=== PATIENT | male | born 1935 | race Caucasian/White ===

== ENCOUNTER 2018-02-21 07:29 | Emergency (ER) | payer MEDICARE, OTHER ==
[2018-02-21] MEDS ORDERED: 50% Dextrose in Water 50 ML Syringe ONE (07:40)
--- NOTE | 2018-02-21 07:54 | EDM.PDOC ---
ED HPI GENERAL MEDICAL PROBLEM - General Stated Complaint: WEAK Time Seen by Provider: 02/21/18 07:40 Source of Information: Reports: Patient, Family (spouse) History Limitations: Reports: Altered Mental Status - History of Present Illness INITIAL COMMENTS - FREE TEXT/NARRATIVE: 82-year-old male who is an insulin-dependent diabetic presents the ED not feeling well. His reports that she had breakfast more or less made and was on the table when they left home. He takes his insulin and all his other medications about 0 7:00 in the morning. Usually uses Lantus in the morning. Within a half hour of taking his insulin this morning however he developed paleness diaphoresis blurred vision and generalized weakness. His was very concerned that he was having a stroke and brought him to the ED. He was identified to have a low blood sugar at 54. Blood sugar at home this morning was reported to be 140 Were not sure where there is a discrepancy in the different readings. It is possible that his Lantus was injected intravenously and acted very quickly to precipitate a hypoglycemic reaction. She responded immediately to D5 IV. Onset: Today Onset Date: 02/21/18 Onset Time: 07:20 Duration: Minutes: Location: Reports: Generalized (Generalized weakness diaphoresis blurred vision insulin reaction.) Severity: Moderate Improves with: Reports: Other (Improved immediately with IV glucose D50 1 amp IV.) Worsens with: Reports: None Context: Reports: Other. Denies: Activity, Exercise, Lifting, Sick Contact, Trauma Associated Symptoms: Reports: Confusion (Acute insulin reaction occurring after insulin injection about 0700 hrs. this morning.), Malaise, Weakness, Other ( Blurred vision.). Denies: Chest Pain, Cough, cough w sputum, Diaphoresis, Fever /Chills, Headaches, Loss of Appetite, Nausea/Vomiting, Rash, Seizure, Shortness of Breath, Syncope Treatments RN PALLIATIVE: Reports: Other (see below) - Related Data Allergies Allergy/AdvReac Type Severity Reaction Status Date / Time No Known Allergies Allergy Verified 02/21/18 07:57 Home Meds: Home Meds Insulin Glarg,Human.Rec.Analog [Lantus Solostar] 18 - 20 unit SQ DAILY 02/21/18 [History] Lisinopril 10 mg PO DAILY 02/21/18 [History] glipiZIDE [Glucotrol XL] 5 mg PO DAILY 02/21/18 [History] Past Medical History Musculoskeletal History: Reports: Osteoarthritis (Knee replacements) Endocrine/Metabolic History: Reports: Diabetes, Type II (Controlled with insulin and diet.) Social & Family History - Living Situation & Occupation Living situation: Reports: Occupation: Retired ED ROS GENERAL - Review of Systems Review Of Systems: See Below Constitutional: Reports: Malaise, Fatigue, Diaphoresis (This morning with insulin reaction). Denies: Fever, Chills, Decreased Appetite (This morning.) HEENT: Reports: Hearing Loss (Chronic hearing loss.), Vision Change (Word vision this morning found a very difficult to focus.) Respiratory: Reports: No Symptoms Cardiovascular: Reports: Blood Pressure Problem. Denies: Chest Pain, Claudication, Dyspnea on Exertion, Lightheadedness, Orthopnea Endocrine: Reports: Fatigue, Low Glucose (This morning developed insulin reaction. Sugar here was 54.) GI/Abdominal: Reports: No Symptoms : Reports: Frequency, Other (Nocturia usually 3) Musculoskeletal: Reports: Joint Pain (Knees hips back and neck.) Skin: Reports: Diaphoresis Neurological: Reports: Confusion (This morning now better.), Dizziness (No better after ) ED EXAM, NEURO - Physical Exam Exam: See Below (No better after D50 IV.) Exam Limited By: Altered Mental Status (Confused and somewhat disoriented.) General Appearance: Anxious, Other (Diaphoretic and cool and clammy.) Eye Exam: Bilateral Eye: PERRL Throat/Mouth: Normal Inspection, Normal Lips, Normal Oropharynx Head Exam: Atraumatic, Normocephalic Neck: Normal Inspection, Supple, Non-Tender, Full Range of Motion. No: Lymphadenopathy (L), Lymphadenopathy (R) Respiratory/Chest: No Respiratory Distress, Lungs Clear, Normal Breath Sounds Cardiovascular: Normal Peripheral Pulses, Regular Rate, Rhythm, No Edema, No Murmur GI/Abdominal: Normal Bowel Sounds, Soft, Non-Tender, No Organomegaly Neurological: Other (Patient became much more alert and oriented 3 and able to speak normally after receiving an amp of D50 IV. Before that his speech was mildly dysarthric and he had trouble expressing himself or we bit.) Extremities: Normal Inspection, Normal Range of Motion Psychiatric: Normal Affect, Normal Mood (After receiving an ayla of D50) Skin Exam: Diaphoretic (Presented quite diaphoretic cool and clammy now improved.) EKG INTERPRETATION EKG Date: 02/21/18 Time: 07:38 Rhythm: Other (Sinus rhythm versus ectopic atrial rhythm.) Rate (Beats/Min): 67 [place]: LAD-Left [place] Deviation (Left axis deviation -40) P-Wave: Variable QRS: Other (He has a nonspecific intraventricular conduction delay. There is early R-wave transition suggesting septal hypertrophy pattern. There is left ventricular hypertrophy pattern.) ST-T: Other (Diffuse early repolarization pattern with no true ST segment elevation.) QT: Prolonged (Mildly prolonged) EKG Interpretation Comments: Abnormal ECG. Course - Vital Signs Last Recorded V/S: Last Vital Signs Temp 36.6 C 02/21/18 07:40 Pulse 66 02/21/18 07:40 Resp 20 02/21/18 07:40 BP 133/69 02/21/18 07:40 Pulse Ox 96 02/21/18 07:40 - Orders/Labs/Meds Orders: Active Orders 24 hr Category Date Time Status Blood Glucose Check, Bedside [RC] ONETIME Care 02/21/18 08:30 Active Blood Glucose Check, Bedside [RC] ONETIME Care 02/21/18 09:15 Active Labs: Laboratory Tests 02/21/18 02/21/18 02/21/18 Range/Units 07:40 08:37 09:26 POC Glucose 54 L 130 H 191 H (83-110) mg/dL Meds: Medications Discontinued Medications Generic Name Dose Route Start Last Admin Trade Name Colin PRN Reason Stop Dose Admin Dextrose/Water Confirm 02/21/18 07:40 02/21/18 07:41 Dextrose 50% In Water Administered 02/21/18 07:41 50 ml Dose Administration 50 ml .ROUTE .STK-MED ONE Dextrose/Water 50 ml 02/21/18 08:21 02/21/18 08:33 Dextrose 50% In Water IVPUSH 02/21/18 08:22 Not Given ASDIRECTED STA - Radiology Interpretation Free Text/Narrative:: 82-year-old male who is a type II diabetic controlled with insulin and diet presents to the ED with an acute episode of confusion disorientation dysarthria diaphoresis weakness. Third vision. He took his Lantus insulin at about 0700 hrs. this morning. His breakfast was more or less ready but he had not yet had time to eat. His appreciated that he looked abnormal confused and disoriented and brought him immediately to the hospital. Here his blood sugar was 54. At home it was apparently 140 when he checked this morning. Not clear if there is a discrepancy deep between the glucometer and our reading or whether he perhaps injected the Lantus insulin intravenously with direct effect this morning. Improved immediately after receiving an amp of D50 IV. Given breakfast. Recheck blood sugar in one hour. - Re-Assessments/Exams Free Text/Narrative Re-Assessment/Exam: 02/21/18 08:39 repeat blood sugar is 130. Therefore he will remain in the ED for an least another 45 minutes. He has 8 some breakfast which may improve his blood sugars well. However I would've anticipated his blood sugar to be well up in the 200s after receiving an amp of D50. We'll have his blood sugar repeated in 40 minutes 02/21/18 09:50 last blood sugar is 191. Therefore it is trending upwards and he feels improved. He will therefore be discharged to home. Departure - Departure Time of Disposition: 09:51 Disposition: Home, Self-Care 01 Condition: Fair Clinical Impression: Hypoglycemia Insulin adverse reaction Qualifiers: Encounter type: initial encounter Qualified Code(s): T38.3X5A - Adverse effect of insulin and oral hypoglycemic [antidiabetic] drugs, initial encounter - Discharge Information *PRESCRIPTION DRUG MONITORING PROGRAM REVIEWED*: Not Applicable *COPY OF PRESCRIPTION DRUG MONITORING REPORT IN PATIENT ZOEY: Not Applicable Referrals: Annalee Kirk NP [Primary Care Provider] - Additional Instructions: Evaluation the emergency room this morning in regards to development of low blood sugar after giving herself insulin injection at about 0700 hrs. You had not yet eaten prepared breakfast. However the insulin given was Lantus which is long-acting and the only way that it should've dropped her blood sugars acutely as if it went directly intravenously which would make it start working immediately. You're treated with an amp of D50 percent glucose intravenously and her mentation and cognitive function returned back to normal. Blood sugar after eating remained lower than I would anticipate at 1:30 after receiving an amp of D50. Therefore you were monitored longer in the ED to make sure that you did not develop any further severe low blood sugars. - My Orders Last 24 Hours: My Active Orders 02/21/18 08:30 Blood Glucose Check, Bedside [RC] ONETIME 02/21/18 09:15 Blood Glucose Check, Bedside [RC] ONETIME - Assessment/Plan Last 24 Hours: My Active Orders 02/21/18 08:30 Blood Glucose Check, Bedside [RC] ONETIME 02/21/18 09:15 Blood Glucose Check, Bedside [RC] ONETIME
[2018-02-21] MEDS ORDERED: 50% Dextrose in Water 50 ML Syringe IVPUSH STA (08:21)
== END 2018-02-21 10:00 | disposition home or self-care (01) ==
LOC: JD.ED 07:29
DX: E11.649 Type 2 diabetes mellitus with hypoglycemia without coma (principal); T38.3X5A Adverse effect of insulin and oral hypoglycemic [antidiabetic] drugs, initial encounter; Z79.4 Long term (current) use of insulin; Z79.899 Other long term (current) drug therapy
CPT/HCPCS: 82962; 93005; 96374; 99285; J7060; 99284

== ENCOUNTER 2018-12-11 20:28 | Emergency (ER) | payer MEDICARE, OTHER ==
--- NOTE | 2018-12-11 20:57 | EDM.PDOC ---
ED HPI GENERAL MEDICAL PROBLEM - General Chief Complaint: Gastrointestinal Problem Stated Complaint: CONSTIPATION Time Seen by Provider: 12/11/18 20:40 Source of Information: Reports: Patient, RN Notes Reviewed History Limitations: Reports: No Limitations - History of Present Illness INITIAL COMMENTS - FREE TEXT/NARRATIVE: Patient is an 83-year-old male who presents to the ED for evaluation of constipation. The patient and his note that he had a left knee repair done in [place] on . The states he has not had a regular bowel movement since around Thursday before the surgery. She states that he's been on the tramadol as his surgeon prescribed, the patient states he is passing very little gas however he is still able to pass gas. He denies any abdominal pain or any nausea or vomiting at this time. He has been trying to take stool softeners, MiraLAX last at 2 PM this afternoon. His has also given him some warm prune juice to try to get his bowels to move but to no avail. - Related Data Allergies Allergy/AdvReac Type Severity Reaction Status Date / Time No Known Allergies Allergy Verified 12/11/18 20:41 Home Meds: Home Meds Insulin Glarg,Human.Rec.Analog [Lantus Solostar] 18 - 20 unit SQ DAILY 02/21/18 [History] Lisinopril 10 mg PO DAILY 02/21/18 [History] glipiZIDE [Glucotrol XL] 5 mg PO DAILY 02/21/18 [History] Past Medical History HEENT History: Reports: Cataract, Impaired Vision Other HEENT History: wears reading glasses Respiratory History: Reports: Pneumonia, Recurrent Other Genitourinary History: states has prostate issues. Musculoskeletal History: Reports: Osteoarthritis Endocrine/Metabolic History: Reports: Diabetes, Type II Hematologic History: Reports: Blood Transfusion(s) - Infectious Disease History Infectious Disease History: Reports: Chicken Pox, Measles, Mumps, Rheumatic Fever - Past Surgical History HEENT Surgical History: Reports: Cataract Surgery Cardiovascular Surgical History: Reports: Coronary Artery Bypass, Other (See Below) Other Cardiovascular Surgeries/Procedures: valve replaced. Musculoskeletal Surgical History: Reports: Other (See Below) (partial knee replacement surgery done 12/09/18 in [place]) Other Musculoskeletal Surgeries/Procedures:: knee surgery Social & Family History - Tobacco Use Smoking Status *Q: Never Smoker - Caffeine Use Caffeine Use: Reports: Coffee - Living Situation & Occupation Living situation: Reports: Occupation: Retired ED ROS GENERAL - Review of Systems Review Of Systems: See Below Constitutional: Denies: Fever, Chills HEENT: Reports: No Symptoms Respiratory: Reports: No Symptoms Cardiovascular: Reports: No Symptoms Endocrine: Reports: No Symptoms GI/Abdominal: Reports: Constipation. Denies: Diarrhea, Nausea, Vomiting Musculoskeletal: Reports: No Symptoms Skin: Reports: No Symptoms Neurological: Reports: No Symptoms Psychiatric: Reports: No Symptoms Hematologic/Lymphatic: Reports: No Symptoms Immunologic: Reports: No Symptoms ED EXAM, GI/ABD - Physical Exam Exam: See Below Exam Limited By: No Limitations General Appearance: Alert, WD/WN, No Apparent Distress Respiratory/Chest: No Respiratory Distress, Lungs Clear, Normal Breath Sounds, No Accessory Muscle Use, Chest Non-Tender Cardiovascular: Normal Peripheral Pulses, Regular Rate, Rhythm, No Murmur GI/Abdominal Exam: Normal Bowel Sounds, Soft, Non-Tender, No Mass, Distended ( slight distention, patient states that he feels bloated.) Neurological: Alert, Oriented, Normal Cognition, No Motor/Sensory Deficits Psychiatric: Normal Affect, Normal Mood Skin Exam: Warm, Dry, Intact, Normal Color, No Rash Course - Vital Signs Last Recorded V/S: Last Vital Signs Temp 99.0 F 12/11/18 20:41 Pulse 80 12/11/18 20:41 Resp BP 137/66 12/11/18 20:41 Pulse Ox 90 L 12/11/18 20:41 - Orders/Labs/Meds Orders: Active Orders 24 hr Category Date Time Status Enema [RC] ASDIRECTED Care 12/11/18 22:31 Ordered Abdomen 2V AP Flat Upright [CR] Stat Exams 12/11/18 20:52 Ordered Meds: Medications Discontinued Medications Generic Name Dose Route Start Last Admin Trade Name Javidq PRN Reason Stop Dose Admin Acetaminophen 650 mg 12/11/18 22:53 Tylenol PO 12/11/18 22:54 NOW ONE Magnesium Citrate 296 ml 12/11/18 21:12 12/11/18 21:21 Citrate Of Magnesia PO 12/11/18 21:13 296 ml ONETIME ONE Administration - Re-Assessments/Exams Free Text/Narrative Re-Assessment/Exam: 12/11/18 20:55 Patient presents to the ED for the evaluation of constipation. I have ordered a flat and upright abdominal x-ray to make sure that he is not obstructed, I do plan on ordering magnesium citrate after the x-rays are done and so that the gentleman can have a good bowel movement. I anticipate x-rays to show increased bowel in his colon, with no obstruction at this time, due to lack of other toxic like symptoms such as nausea and vomiting. 12/11/18 21:14 Patient's x-ray is done, and demonstrates quite a bit of stool in the right side of his colon, there does not appear to be any into the left side of his colon. This was reviewed by Dr. Farooq and myself. I have ordered magnesium citrate to be given with extra oral fluids as well. I am hopeful that this should provide the gentleman results, and he should be discharged safely after he has a good bowel movement. 12/11/18 22:32 The RN informs me that the patient has not had a bowel movement yet, I did order a mineral oil enema to be done to see if this doesn't help. Departure - Departure Time of Disposition: 22:58 Disposition: Home, Self-Care 01 Condition: Fair Clinical Impression: Constipation Qualifiers: Constipation type: drug induced constipation Qualified Code(s): K59.03 - Drug induced constipation - Discharge Information *PRESCRIPTION DRUG MONITORING PROGRAM REVIEWED*: No *COPY OF PRESCRIPTION DRUG MONITORING REPORT IN PATIENT ZOEY: No Instructions: Constipation, Adult, [id number] Referrals: Mamta Gaxiola PA [Primary Care Provider] - Forms: ED Department Discharge Additional Instructions: You have been evaluated in the ED today for your constipation. Your x-ray did show it a large amount of stool within your right side of her colon, you have been given magnesium citrate in the ED to provide you a bowel movement. Please take the other half bottle of magnesium citrate tomorrow morning if you do not have much of a bowel movement over the night. The pain medications that your orthopedic surgeon gave you are the likely culprit of your constipation. Narcotic pain medications can be quite constipating. Recommend that you increase your oral fluid intake and take MiraLAX daily to keep the stool soft. If you are having too much constipation from taking your narcotic pain medications (Tramadol), you can try some [id number] medications such as 500mg Tylenol or 600mg ibuprofen every 6 hours for pain relief first and if the pain is not relieved by the Tylenol or ibuprofen by itself then take your narcotic pain medication. Please do not take more than 4000 mg of Tylenol or 3200mg Ibuprofen in a 24-hour time span. Recommend a high-fiber diet while you are on the narcotic pain medications. Please return to the ED if your symptoms should change or worsen. - My Orders Last 24 Hours: My Active Orders 12/11/18 20:52 Abdomen 2V AP Flat Upright [CR] Stat 12/11/18 22:31 Enema [RC] ASDIRECTED - Assessment/Plan Last 24 Hours: My Active Orders 12/11/18 20:52 Abdomen 2V AP Flat Upright [CR] Stat 12/11/18 22:31 Enema [RC] ASDIRECTED
[2018-12-11] MEDS ORDERED: Magnesium Citrate Solution 296 ML Bottle PO ONE (21:12)
[2018-12-11] MEDS ORDERED: Acetaminophen 325 MG Tab PO ONE (22:53)
--- NOTE | 2018-12-12 17:55 | CR ---
Abdomen: Supine and upright views of the abdomen were obtained. Comparison: No prior abdominal x-ray, previous CT abdomen and pelvis study of 01/01/09 is available. Bowel gas pattern appears normal. Bony structures are osteopenic. Slight degenerative change is scattered within the spine. No free air is seen. No abnormal calcifications are seen. No discrete soft tissue abnormality is seen. Previous sternotomy is noted. Impression: 1. Incidental findings. Nothing acute is identified. Diagnostic code #2
== END 2018-12-11 23:28 | disposition home or self-care (01) ==
LOC: JD.ED 20:28
DX: K59.03 Drug induced constipation (principal); T50.905A Adverse effect of unspecified drugs, medicaments and biological substances, initial encounter; E11.9 Type 2 diabetes mellitus without complications; Z79.899 Other long term (current) drug therapy; Z79.4 Long term (current) use of insulin; Z95.1 Presence of aortocoronary bypass graft; Z98.890 Other specified postprocedural states
CPT/HCPCS: 74019; 99283; A9270; 99282

== ENCOUNTER 2019-08-15 10:06 | Day surgery (SDC) | payer MEDICARE, OTHER ==
[~2019-08-15 10:06] MED LIST: Lactated Ringers 1,000 ML IV SCH; Lidocaine 1%/Sod Bicarbonate in NS 8.4% 1 ML Syringe IDERM PRN; Sodium Chloride 0.9% 10 ML Syringe FLUSH PRN
[2019-08-15] MEDS ORDERED: Propofol 200 MG/20 ML SDV ONE ×2 (12:02→13:05)
[2019-08-15] MEDS ORDERED: Lidocaine 1% 4 ML ONE (12:03)
--- NOTE | 2019-08-15 12:29 | PCM.PREANE ---
Preanesthetic Assessment - Procedure Proposed Procedure: Colonoscopy - Anesthesia/Transfusion/Family Hx Anesthesia History: Prior Anesthesia Without Reaction Family History of Anesthesia Reaction: No - Review of Systems General: No Symptoms Pulmonary: No Symptoms Cardiovascular: No Symptoms, Other (Aortic Valve Replacement 2005, Severe Mitral Stenosis, EF 50-55%, > 4 Met Capacity. Walks 2 rounds of the mall. ) Gastrointestinal: No Symptoms Neurological: No Symptoms Other: Reports: Diabetes (Blood Glucose 92 mg/dl.) - Physical Assessment NPO Status Date: 08/14/19 NPO Status Time: 22:00 Vital Signs: Last Vital Signs Temp 36.9 C 08/15/19 10:25 Pulse 64 08/15/19 10:25 Resp 16 08/15/19 10:25 BP 153/82 H 08/15/19 10:25 Pulse Ox 97 08/15/19 10:25 Height: 1.78 m Weight: 97.069 kg ASA Class: 3 Mental Status: Alert & Oriented x3 Airway Class: Mallampati = 2 Dentition: Reports: Caries (Chipped tooth) Thyro-Mental Finger Breadths: 3 Mouth Opening Finger Breadths: 3 ROM/Head Extension: Full Lungs: Clear to Auscultation, Normal Respiratory Effort Cardiovascular: Regular Rate, Regular Rhythm (Occasional PVCs noted on bedside monitor. ), Murmurs - Lab Values: Laboratory Last Values POC Glucose 92 mg/dL (83-110) 08/15/19 11:04 - Allergies Allergies/Adverse Reactions: Allergies Allergy/AdvReac Type Severity Reaction Status Date / Time No Known Allergies Allergy Verified 08/12/19 11:14 - Acknowledgements Anesthesia Type Planned: MAC Pt an Appropriate Candidate for the Planned Anesthesia: Yes Alternatives and Risks of Anesthesia Discussed w Pt/Guardian: Yes Pt/Guardian Understands and Agrees with Anesthesia Plan: Yes PreAnesthesia Questionnaire HEENT History: Reports: Cataract, Hard of Hearing, Impaired Vision Other HEENT History: wears reading glasses, epistaxis, otogenic pain Cardiovascular History: Reports: Heart Murmur, Hypertension, Other (See Below) Other Cardiovascular History: carotid sinus syndrome, heart valve replacement, mitral stenosis, aortic insufficiency Respiratory History: Reports: Pneumonia, Recurrent Gastrointestinal History: Reports: Chronic Constipation Genitourinary History: Reports: BPH, Renal Disease, UTI, Recurrent Other Genitourinary History: states has prostate issues. VP OUTCOMES History: Reports: None Musculoskeletal History: Reports: Osteoarthritis, RA, SLE Other Musculoskeletal History: restless leg syndrome, polymyalgia rheumatica, bunion, joint pain Neurological History: Reports: Other (See Below) Other Neuro History: cerviclagia Psychiatric History: Reports: None Endocrine/Metabolic History: Reports: None, Diabetes, Type II Hematologic History: Reports: Anemia, Blood Transfusion(s) Immunologic History: Reports: None Oncologic (Cancer) History: Reports: None Dermatologic History: Reports: Seborrheic Dermatitis - Infectious Disease History Infectious Disease History: Reports: Chicken Pox, Measles, Mumps, Rheumatic Fever - Past Surgical History Head Surgeries/Procedures: Reports: None HEENT Surgical History: Reports: Cataract Surgery Cardiovascular Surgical History: Reports: Coronary Artery Bypass, Valve Replacement, Other (See Below) Other Cardiovascular Surgeries/Procedures: valve replaced. GI Surgical History: Reports: Colonoscopy, Hernia, Inguinal Male Surgical History: Reports: Prostate Biopsy Endocrine Surgical History: Reports: None Neurological Surgical History: Reports: None Musculoskeletal Surgical History: Reports: Other (See Below) Other Musculoskeletal Surgeries/Procedures:: right shoulder surgery Oncologic Surgical History: Reports: None Dermatological Surgical History: Reports: None - SUBSTANCE USE Smoking Status *Q: Never Smoker - HOME MEDS Home Medications: Home Meds Lisinopril 10 mg PO DAILY 02/21/18 [History] glipiZIDE [Glucotrol XL] 5 mg PO DAILY 02/21/18 [History] Aspirin 81 mg PO DAILY 08/12/19 [History] Docusate Sodium [Colace] 100 mg PO BID 08/12/19 [History] Insulin Degludec [Tresiba] 11 units SQ QAM 08/12/19 [History] Magnesium Oxide 250 mg PO DAILY 08/12/19 [History] Meloxicam [Mobic] 7.5 mg PO DAILY 08/12/19 [History] Multivitamin [Daily Multiple Vitamin] 1 tab PO DAILY 08/12/19 [History] Polyethylene Glycol 3350 [MiraLAX] 17 g PO DAILY 08/12/19 [History] Tamsulosin HCl [Flomax] 0.4 mg PO DAILY 08/12/19 [History] rOPINIRole [Requip] 1 mg PO BEDTIME 08/12/19 [History] - CURRENT (IN HOUSE) MEDS Current Meds: Current Medications Lactated Ringer's (Ringers, Lactated) 1,000 mls @ 125 mls/hr IV ASDIRECTED ALLIE Stop: 08/15/19 23:00 Last Admin: 08/15/19 10:45 Dose: 125 mls/hr Lidocaine/Sodium Bicarbonate (Buffered Lidocaine 1% In Ns 8.4%) 0.25 ml IDERM ONETIME PRN PRN Reason: Prior to IV Start Stop: 08/15/19 18:00 Last Admin: 08/15/19 10:44 Dose: 0.25 ml Sodium Chloride (Saline Flush) 10 ml FLUSH ASDIRECTED PRN PRN Reason: Keep Vein Open Stop: 08/15/19 18:00 Discontinued Medications Lidocaine HCl (Xylocaine-Mpf 1%) Confirm Administered Dose 4 mls @ as directed .ROUTE .STK-MED ONE Stop: 08/15/19 12:04 Propofol (Diprivan 20 Ml) Confirm Administered Dose 200 mg .ROUTE .STK-MED ONE Stop: 08/15/19 12:03
--- NOTE | 2019-08-15 13:37 | PCM48HPAN ---
Post Anesthesia Note - EVALUATION WITHIN 48HRS OF ANESTHETIC Vital Signs in Normal Range: Yes Patient Participated in Evaluation: Yes Respiratory Function Stable: Yes Airway Patent: Yes Cardiovascular Function Stable: Yes Hydration Status Stable: Yes Pain Control Satisfactory: Yes Nausea and Vomiting Control Satisfactory: Yes Mental Status Recovered: Yes Vital Signs: Last Vital Signs Temp 36.9 C 08/15/19 10:25 Pulse 64 08/15/19 10:25 Resp 16 08/15/19 10:25 BP 153/82 H 08/15/19 10:25 Pulse Ox 97 08/15/19 10:25
--- NOTE | 2019-08-15 15:48 | PROC ---
DATE OF OPERATION: 08/15/2019 SURGEON: Roseanne Malagon MD PREOPERATIVE DIAGNOSIS: Change in bowel habits. POSTOPERATIVE DIAGNOSES: 1. Melanosis coli. 2. Diverticulosis. 3. Grade 2 hemorrhoids. 4. 1 small ascending colon polyp. OPERATION PERFORMED: Colonoscopy, polypectomy. ANESTHESIA: Monitored anesthesia care. COMPLICATIONS: None. INDICATION AND CONSENT: The patient is an 83-year-old male who started having severe constipation about 2 to 3 months ago after having a hip surgery. This constipation persisted despite having healed from the surgery. The patient presented to my clinic for worrisome symptoms and discovered the patient had prior history of rectal cancer that was removed transrectally. Therefore, due to personal history of cancer as well as change in bowel habits, we recommended repeat colonoscopy. Risks, benefits, and alternatives were discussed with the patient in detail. All questions were answered. Informed consent was obtained. DESCRIPTION OF PROCEDURE: The patient was taken to the procedure room, placed in left lateral decubitus position. Following induction of monitored anesthesia care, we began the exam by doing a perianal exam. There were some skin tags that were unremarkable. Digital rectal exam did not reveal any masses or any other abnormalities. The scope was placed and taken all the way to the cecum. Appendiceal orifice and ileocecal valve were photographed. Prep was adequate. Then, scope was withdrawn slowly, examining the entirety of the colonic wall. There was a 2 mm polyp in the proximal ascending colon, that was removed with cold forceps. The colonoscopy was then withdrawn slowly and the entirety of the colonic mucosa appeared to be having melanosis coli but no other polyps. On retroflexion views in the rectum, there were some grade 2 hemorrhoids. The patient had large scattered diverticulosis in the descending colon, sigmoid as well as the proximal rectum. There was no stigmata of bleeding. No infection. Then, the air was suctioned out, and the scope was withdrawn without any complications. The patient was taken to the PACU for recovery. We will call the patient with pathology results. Other than that, the patient can continue to use MiraLAX as needed for constipation as well as increased physical activity for constipation. No further recommendation for repeat scope. Pending pathology results from the biopsy. MMODAL /[id number] LATANYA
== END 2019-08-15 14:31 | disposition home or self-care (01) ==
LOC: JD.SDS 10:06
PROVIDERS: ATTEND Surgery
DX: D12.2 Benign neoplasm of ascending colon (principal); K57.30 Diverticulosis of large intestine without perforation or abscess without bleeding; K64.1 Second degree hemorrhoids; K63.89 Other specified diseases of intestine; E11.9 Type 2 diabetes mellitus without complications; I10 Essential (primary) hypertension; I25.10 Atherosclerotic heart disease of native coronary artery without angina pectoris; M06.9 Rheumatoid arthritis, unspecified; M19.90 Unspecified osteoarthritis, unspecified site; N40.0 Benign prostatic hyperplasia without lower urinary tract symptoms; Z85.048 Personal history of other malignant neoplasm of rectum, rectosigmoid junction, and anus; Z79.899 Other long term (current) drug therapy; Z79.82 Long term (current) use of aspirin; Z79.4 Long term (current) use of insulin
CPT/HCPCS: 45380; 82962; J2001; J2704; J7120; 00811; 88305

== ENCOUNTER 2020-01-07 17:10 | Emergency (ER) | payer MEDICARE, OTHER ==
--- NOTE | 2020-01-07 17:51 | EDM.PDOC ---
ED HPI GENERAL MEDICAL PROBLEM - General Chief Complaint: Lower Extremity Injury/Pain Stated Complaint: LT LEG SWOLLEN Time Seen by Provider: 01/07/20 17:23 Source of Information: Reports: Patient, RN Notes Reviewed History Limitations: Reports: No Limitations - History of Present Illness INITIAL COMMENTS - FREE TEXT/NARRATIVE: Patient is an 84-year-old male who presents to the ED for the evaluation of his left foot swelling. Patient notes that on he was seen by his primary care provider, Dr. Reyes, and he was thought to have a gout flare. He was placed on colchicine, 0.6 mg twice daily and had some lab work taken along with x-ray. The x-ray apparently showed no signs of any fracture or otherwise. Patient has been taking the colchicine as prescribed, and he states that this has helped with the pain, but noticed that the swelling has increased. He does not recount any previous injuries to the left leg, and still able to wiggle his toes and move his foot at the ankle joint without much difficulty. Patient states it does not hurt to weight-bear for the most part, but it was pretty hard to weight-bear on when everything started. He does note that he has been working outside as well, to get fencing up, and was questioning whether or not he overdid it on that aspect. He denies any other sick-like symptoms, fever/chills, cough/shortness of breath or chest pain. Left Leg Pain Score (Numeric/FACES): 4 - Related Data Allergies Allergy/AdvReac Type Severity Reaction Status Date / Time No Known Allergies Allergy Verified 01/07/20 17:22 Home Meds: Home Meds Lisinopril 10 mg PO DAILY 02/21/18 [History] glipiZIDE [Glucotrol XL] 5 mg PO DAILY 02/21/18 [History] Aspirin 81 mg PO DAILY 08/12/19 [History] Docusate Sodium [Colace] 100 mg PO BID 08/12/19 [History] Insulin Degludec [Tresiba] 11 units SQ QAM 08/12/19 [History] Magnesium Oxide 250 mg PO DAILY 08/12/19 [History] Meloxicam [Mobic] 7.5 mg PO DAILY 08/12/19 [History] Multivitamin [Daily Multiple Vitamin] 1 tab PO DAILY 08/12/19 [History] Tamsulosin HCl [Flomax] 0.4 mg PO DAILY 08/12/19 [History] polyethylene glycoL 3350 [MiraLAX] 17 g PO DAILY 08/12/19 [History] rOPINIRole [Requip] 1 mg PO BEDTIME 08/12/19 [History] Past Medical History HEENT History: Reports: Cataract, Hard of Hearing, Impaired Vision Other HEENT History: wears reading glasses, epistaxis, otogenic pain Cardiovascular History: Reports: Heart Murmur, Hypertension, Other (See Below) Other Cardiovascular History: carotid sinus syndrome, heart valve replacement, mitral stenosis, aortic insufficiency Respiratory History: Reports: Pneumonia, Recurrent Gastrointestinal History: Reports: Chronic Constipation Genitourinary History: Reports: BPH, Renal Disease, UTI, Recurrent Other Genitourinary History: states has prostate issues. Musculoskeletal History: Reports: Osteoarthritis, RA, SLE Other Musculoskeletal History: restless leg syndrome, polymyalgia rheumatica, bunion, joint pain Neurological History: Reports: Other (See Below) Other Neuro History: cerviclagia Endocrine/Metabolic History: Reports: Diabetes, Type II Hematologic History: Reports: Anemia, Blood Transfusion(s) Dermatologic History: Reports: Seborrheic Dermatitis - Infectious Disease History Infectious Disease History: Reports: Chicken Pox, Measles, Mumps, Rheumatic Fever - Past Surgical History HEENT Surgical History: Reports: Cataract Surgery Cardiovascular Surgical History: Reports: Coronary Artery Bypass, Valve Replacement, Other (See Below) Other Cardiovascular Surgeries/Procedures: valve replaced. GI Surgical History: Reports: Colonoscopy, Hernia, Inguinal Male Surgical History: Reports: Prostate Biopsy Endocrine Surgical History: Reports: None Musculoskeletal Surgical History: Reports: Other (See Below) Other Musculoskeletal Surgeries/Procedures:: right shoulder surgery Social & Family History - Tobacco Use Smoking Status *Q: Never Smoker Second Hand Smoke Exposure: No - Caffeine Use Caffeine Use: Reports: None - Recreational Drug Use Recreational Drug Use: No - Living Situation & Occupation Living situation: Reports: Occupation: Retired Review of Systems - Review of Systems Review Of Systems: Comprehensive ROS is negative, except as noted in HPI. ED EXAM, GENERAL - Physical Exam Exam: See Below Exam Limited By: No Limitations General Appearance: Alert, WD/WN, No Apparent Distress Eye Exam: Bilateral Eye: EOMI, Normal Inspection, PERRL Ears: Normal External Exam Nose: Normal Inspection Throat/Mouth: Normal Inspection, Normal Lips, Normal Teeth, Normal Gums, Normal Oropharynx, Normal Voice, No Airway Compromise Head: Atraumatic, Normocephalic Neck: Normal Inspection Respiratory/Chest: No Respiratory Distress, Lungs Clear, Normal Breath Sounds, No Accessory Muscle Use, Chest Non-Tender Cardiovascular: Normal Peripheral Pulses, Regular Rate, Rhythm, No Murmur Peripheral Pulses: 3+: Dorsalis Pedis (L), Dorsalis Pedis (R) Extremities: Normal Inspection, Normal Range of Motion, Normal Capillary Refill , Pedal Edema (noted to left lower extremity/foot, there is redness with associated warmth to dorsum of left foot, over the medial midfoot area. Patient states that this is tender to touch. 2+ pitting edema noted to this area only, extends to just above ankle) Neurological: Alert, Oriented, Normal Cognition, No Motor/Sensory Deficits Psychiatric: Normal Affect, Normal Mood Skin Exam: Warm, Dry, Intact, Normal Color, No Rash, Erythema (to dorsum of left foot with associated warmth and pain. see extremites assessment for full detail.) Course - Vital Signs Last Recorded V/S: Last Vital Signs Temp 97.5 F 01/07/20 17:19 Pulse 71 01/07/20 17:19 Resp 16 01/07/20 17:19 BP 144/71 H 01/07/20 17:19 Pulse Ox 96 01/07/20 17:19 - Orders/Labs/Meds Orders: Active Orders 24 hr Category Date Time Status PEDRO Bandage [Elastic Wrap] [OM.PC] Routine Oth 01/07/20 18:40 Ordered Labs: Laboratory Tests 01/07/20 01/07/20 Range/Units 17:54 17:54 WBC 7.48 (4.23-9.07) K/mm3 RBC 4.15 L (4.63-6.08) M/mm3 Hgb 12.5 L (13.7-17.5) gm/dl Hct 38.3 L (40.1-51.0) % MCV 92.3 H (79.0-92.2) fl MCH 30.1 (25.7-32.2) pg MCHC 32.6 (32.2-35.5) g/dl RDW Std Deviation 40.9 (35.1-43.9) fL Plt Count 281 (163-337) K/mm3 MPV 10.4 (9.4-12.3) fl Neutrophils % (Manual) 69 H (40-60) % Band Neutrophils % 0 (0-10) % Lymphocytes % (Manual) 25 (20-40) % Atypical Lymphs % 0 % Monocytes % (Manual) 4 (2-10) % Eosinophils % (Manual) 2 (0.8-7.0) % Basophils % (Manual) 0 L (0.2-1.2) Platelet Estimate Adequate RBC Morph Comment Normal Sodium 139 (136-145) mEq/L Potassium 4.2 (3.5-5.1) mEq/L Chloride 103 (98-107) mEq/L Carbon Dioxide 25 (21-32) mEq/L Anion Gap 15.2 H (5-15) BUN 27 H (7-18) mg/dL Creatinine 1.4 H (0.7-1.3) mg/dL Est Cr Clr Drug Dosing 41.09 mL/min Estimated GFR (MDRD) 48 (>60) mL/min BUN/Creatinine Ratio 19.3 H (14-18) Glucose 164 H (83-115) mg/dL Uric Acid 7.9 H (3.5-7.2) mg/dL Calcium 9.0 (8.5-10.1) mg/dL Total Bilirubin 0.4 (0.2-1.0) mg/dL AST 15 (15-37) U/L ALT 19 (16-63) U/L Alkaline Phosphatase 51 (46-116) U/L C-Reactive Protein 5.8 H* (<1.0) mg/dL Total Protein 7.0 (6.4-8.2) g/dl Albumin 3.5 (3.4-5.0) g/dl Globulin 3.5 gm/dL Albumin/Globulin Ratio 1.0 (1-2) - Re-Assessments/Exams Free Text/Narrative Re-Assessment/Exam: 01/07/20 17:51 Patient presents to the ER today for his swollen left foot and leg. I do believe there to be low likelihood of suspicion for any sort of blood clot, as the swelling seems to be within his foot, I would agree that this does appear to be a gout flare in nature, but he has been on at least 48 hours worth of colchicine, and the swelling does not seem to be going down, however the pain is gotten better. We will get some baseline labs for evaluation, to include CBC , CMP, CRP and uric acid. 01/07/20 18:35 Patient's labs are resulted, white blood cell count is within normal limits, he has some renal insufficiency, uric acid is elevated at 7.9, CRP is elevated at 5.8. This is suggestive for gout in nature, I would assume that his uric acid was probably higher before starting the colchicine. We will have the patient try to elevate his leg as much as possible ice the area and try not to do a whole lot activities over the next day or 2 and have him follow-up with Dr. Husain if the pain and/or swelling does not seem to be getting much better in the next 48 to 72 hours. He will be directed to keep taking the colchicine as prescribed. Departure - Departure Time of Disposition: 18:36 Disposition: Home, Self-Care 01 Condition: Good Clinical Impression: Acute gout Qualifiers: Gout site: foot Gout etiology: unspecified cause Laterality: left Qualified Code(s): M10.9 - Gout, unspecified - Discharge Information *PRESCRIPTION DRUG MONITORING PROGRAM REVIEWED*: No *COPY OF PRESCRIPTION DRUG MONITORING REPORT IN PATIENT ZOEY: No Instructions: Low-Purine Eating Plan Referrals: Navi Husain MD [Primary Care Provider] - Forms: ED Department Discharge Additional Instructions: You were evaluated in the ER today for your redness and swelling of your left foot. Laboratory evaluation did demonstrate that this is most likely due to gout, you are on colchicine, please continue to take as directed. I would highly recommend that you try to elevate the leg/foot as much as possible, you may try to ice the area as well to help relieve some of the swelling. You may also apply Pedro wraps to the leg to help relieve some of the swelling. I would highly recommend that you take it easy over the next few days , and try to stay off of your feet to also help relieve some of the swelling. Recommend you follow-up with Dr. Husain sometime early this week, for reexamination and to make sure your symptoms are getting better as expected. Please return to the ER at any time if symptoms should change or worsen. Sepsis Event Note - Evaluation Sepsis Screening Result: No Definite Risk - Focused Exam Vital Signs: Vital Signs Temp Pulse Resp BP Pulse Ox 01/07/20 17:19 97.5 F 71 16 144/71 H 96 Date Exam was Performed: 01/07/20 Time Exam was Performed: 18:41 - My Orders Last 24 Hours: My Active Orders 01/07/20 18:40 PEDRO Bandage [Elastic Wrap] [OM.PC] Routine - Assessment/Plan Last 24 Hours: My Active Orders 01/07/20 18:40 PEDRO Bandage [Elastic Wrap] [OM.PC] Routine
== END 2020-01-07 18:50 | disposition home or self-care (01) ==
LOC: JD.ED 17:10
DX: M10.9 Gout, unspecified (principal); E11.9 Type 2 diabetes mellitus without complications; I10 Essential (primary) hypertension; M32.9 Systemic lupus erythematosus, unspecified; G25.81 Restless legs syndrome; Z79.82 Long term (current) use of aspirin; Z79.4 Long term (current) use of insulin; Z79.899 Other long term (current) drug therapy
CPT/HCPCS: 36415; 80053; 84550; 85007; 85027; 86140; 99283

== ENCOUNTER 2020-09-01 16:13 | Emergency (ER) | payer MEDICARE, OTHER ==
[2020-09-01] MEDS ORDERED: Sodium Chloride 0.9% 10 ML Syringe FLUSH PRN (16:41)
--- NOTE | 2020-09-01 19:41 | EDM.PDOC ---
ED HPI GENERAL MEDICAL PROBLEM - General Chief Complaint: Genitourinary Problem Stated Complaint: BLOOD IN URINE Time Seen by Provider: 09/01/20 16:28 Source of Information: Reports: Patient, RN Notes Reviewed History Limitations: Reports: No Limitations - History of Present Illness INITIAL COMMENTS - FREE TEXT/NARRATIVE: Patient is an 84-year-old male presenting to the emergency department with complaints of gross hematuria that began this evening. He reports he has a history of prostate issues with previous prostate surgery 20 years ago. He has had no problems since that time. He reports that a couple hours prior to coming to the ER, he started passing blood through his urine as well as 2 grape-sized blood clots. He denies any pain with urination, flank pain, or abdominal pain. He has no history of hematuria but has had urinary tract infections in the past. - Related Data Allergies Allergy/AdvReac Type Severity Reaction Status Date / Time No Known Allergies Allergy Verified 09/01/20 16:41 Home Meds: Home Meds Lisinopril 10 mg PO DAILY 02/21/18 [History] Aspirin 81 mg PO DAILY 08/12/19 [History] Insulin Degludec [Tresiba] 11 units SQ QAM 08/12/19 [History] Magnesium Oxide 250 mg PO DAILY 08/12/19 [History] Multivitamin [Daily Multiple Vitamin] 1 tab PO DAILY 08/12/19 [History] Tamsulosin HCl [Flomax] 0.4 mg PO DAILY 08/12/19 [History] polyethylene glycoL 3350 [MiraLAX] 17 g PO DAILY PRN 08/12/19 [History] Ascorbic Acid [Vitamin C] 500 mg PO DAILY 09/01/20 [History] Past Medical History HEENT History: Reports: Cataract, Hard of Hearing, Impaired Vision Other HEENT History: wears reading glasses, epistaxis, otogenic pain Cardiovascular History: Reports: Heart Murmur, Hypertension, Other (See Below) Other Cardiovascular History: carotid sinus syndrome, heart valve replacement, mitral stenosis, aortic insufficiency Respiratory History: Reports: Pneumonia, Recurrent Gastrointestinal History: Reports: Chronic Constipation Genitourinary History: Reports: BPH, Renal Disease, UTI, Recurrent Other Genitourinary History: states has prostate issues. Musculoskeletal History: Reports: Osteoarthritis, RA, SLE Other Musculoskeletal History: restless leg syndrome, polymyalgia rheumatica,bunion, joint pain Neurological History: Reports: Other (See Below) Other Neuro History: cerviclagia Psychiatric History: Reports: None Endocrine/Metabolic History: Reports: Diabetes, Type II Hematologic History: Reports: Anemia, Blood Transfusion(s) Immunologic History: Reports: None Oncologic (Cancer) History: Reports: None Dermatologic History: Reports: Seborrheic Dermatitis - Infectious Disease History Infectious Disease History: Reports: Chicken Pox, Measles, Mumps, Rheumatic Fever - Past Surgical History Head Surgeries/Procedures: Reports: None HEENT Surgical History: Reports: Cataract Surgery Cardiovascular Surgical History: Reports: Coronary Artery Bypass, Valve Replacement, Other (See Below) Other Cardiovascular Surgeries/Procedures: valve replaced. GI Surgical History: Reports: Colonoscopy, Hernia, Inguinal Male Surgical History: Reports: Prostate Biopsy Endocrine Surgical History: Reports: None Neurological Surgical History: Reports: None Musculoskeletal Surgical History: Reports: Other (See Below) Other Musculoskeletal Surgeries/Procedures:: right shoulder surgery Oncologic Surgical History: Reports: None Dermatological Surgical History: Reports: None Social & Family History - Family History Family Medical History: No Pertinent Family History - Tobacco Use Tobacco Use Status *Q: Never Tobacco User - Caffeine Use Caffeine Use: Reports: Coffee Caffeine Use Comment: 1 or 2 cups per week - Recreational Drug Use Recreational Drug Use: No - Living Situation & Occupation Living situation: Reports: Occupation: Retired ED ROS GENERAL - Review of Systems Review Of Systems: See Below Constitutional: Reports: No Symptoms. Denies: Fever, Chills, Weakness HEENT: Reports: No Symptoms Respiratory: Reports: No Symptoms Cardiovascular: Reports: No Symptoms Endocrine: Reports: No Symptoms GI/Abdominal: Reports: No Symptoms. Denies: Abdominal Pain, Diarrhea, Nausea, Vomiting : Reports: Hematuria. Denies: Dysuria, Flank Pain, Pain, Urinary Retention Musculoskeletal: Reports: No Symptoms Skin: Reports: No Symptoms Neurological: Reports: No Symptoms Psychiatric: Reports: No Symptoms Hematologic/Lymphatic: Reports: No Symptoms Immunologic: Reports: No Symptoms ED EXAM, RENAL/ - Physical Exam Exam: See Below General Appearance: Alert, WD/WN, No Apparent Distress Respiratory/Chest: No Respiratory Distress, Lungs Clear, Normal Breath Sounds, No Accessory Muscle Use, Chest Non-Tender Cardiovascular: Normal Peripheral Pulses, Regular Rate, Rhythm, No Edema, No Gallop, No JVD, No Murmur, No Rub GI/Abdominal: Normal Bowel Sounds, Soft, Non-Tender, No Organomegaly, No Distention, No Abnormal Bruit, No Mass Neurological: Alert, Oriented, CN II-XII Intact, Normal Cognition, Normal Gait, Normal Reflexes, No Motor/Sensory Deficits Psychiatric: Normal Affect, Normal Mood Skin Exam: Warm, Dry, Intact, Normal Color, No Rash Course - Vital Signs Last Recorded V/S: Last Vital Signs Temp 97.2 F 09/01/20 16:34 Pulse 63 09/01/20 16:34 Resp 14 09/01/20 16:34 BP 121/65 09/01/20 16:34 Pulse Ox 97 09/01/20 16:34 - Orders/Labs/Meds Orders: Active Orders 24 hr Category Date Time Status Peripheral IV Care [RC] . DIRECTED Care 09/01/20 16:42 Active Abdomen Pelvis wo Cont [CT] Stat Exams 09/01/20 17:23 Taken INR,PT,PROTHROMBIN TIME [COAG] Stat Lab 09/01/20 17:25 Received Sodium Chloride 0.9% [Saline Flush] Med 09/01/20 16:41 Active 10 ml FLUSH ASDIRECTED PRN Peripheral IV Insertion Adult [OM.PC] Stat Oth 09/01/20 16:41 Ordered Medication Orders Sodium Chloride (Saline Flush) 10 ml FLUSH ASDIRECTED PRN PRN Reason: Keep Vein Open Last Admin: 09/01/20 17:34 Dose: 10 ml Documented by: HERMMIC Labs: Laboratory Tests 09/01/20 09/01/20 09/01/20 Range/Units 17:12 17:25 17:37 WBC 6.78 (4.23-9.07) K/mm3 RBC 4.15 L (4.63-6.08) M/mm3 Hgb 12.7 L (13.7-17.5) gm/dl Hct 38.2 L (40.1-51.0) % MCV 92.0 (79.0-92.2) fl MCH 30.6 (25.7-32.2) pg MCHC 33.2 (32.2-35.5) g/dl RDW Std Deviation 42.2 (35.1-43.9) fL Plt Count 297 (163-337) K/mm3 MPV 10.5 (9.4-12.3) fl Neut % (Auto) 55.9 (34.0-67.9) % Lymph % (Auto) 29.8 (21.8-53.1) % [place] % (Auto) 8.1 (5.3-12.2) % Eos % (Auto) 5.8 (0.8-7.0) Baso % (Auto) 0.3 (0.1-1.2) % Neut # (Auto) 3.79 (1.78-5.38) K/mm3 Lymph # (Auto) 2.02 (1.32-3.57) K/mm3 [place] # (Auto) 0.55 (0.30-0.82) K/mm3 Eos # (Auto) 0.39 (0.04-0.54) K/mm3 Baso # (Auto) 0.02 (0.01-0.08) K/mm3 Sodium 141 (136-145) mEq/L Potassium 4.2 (3.5-5.1) mEq/L Chloride 106 (98-107) mEq/L Carbon Dioxide 25 (21-32) mEq/L Anion Gap 14.2 (5-15) BUN 23 H (7-18) mg/dL Creatinine 1.4 H (0.7-1.3) mg/dL Est Cr Clr Drug Dosing 41.09 mL/min Estimated GFR (MDRD) 48 (>60) mL/min BUN/Creatinine Ratio 16.4 (14-18) Glucose 96 (83-115) mg/dL Calcium 9.1 (8.5-10.1) mg/dL Total Bilirubin 0.5 (0.2-1.0) mg/dL AST 15 (15-37) U/L ALT 25 (16-63) U/L Alkaline Phosphatase 53 (46-116) U/L C-Reactive Protein <0.2 (<1.0) mg/dL Total Protein 7.0 (6.4-8.2) g/dl Albumin 3.7 (3.4-5.0) g/dl Globulin 3.3 gm/dL Albumin/Globulin Ratio 1.1 (1-2) Urine Color Red H (Yellow) Urine Appearance Turbid H (Clear) Urine pH 6.0 (5.0-8.0) Ur Specific [place] 1.025 (1.005-1.030) Urine Protein 3+ H (Negative) Urine Glucose (UA) Negative (Negative) Urine Ketones Negative (Negative) Urine Occult Blood 3+ H (Negative) Urine Nitrite Negative (Negative) Urine Bilirubin Negative (Negative) Urine Urobilinogen 0.2 (0.2-1.0) Ur Leukocyte Esterase Negative (Negative) Urine RBC Too numerous to cnt H (0-5) /hpf Urine WBC 5-10 H (0-5) /hpf Ur Squamous Epith Cells 0-5 (0-5) /hpf Urine Bacteria Few (FEW) /hpf Urine Mucus Not seen (FEW) /hpf Meds: Medications Generic Name Dose Route Start Last Admin Trade Name Freq PRN Reason Stop Dose Admin Sodium Chloride 10 ml 09/01/20 16:41 09/01/20 17:34 Saline Flush FLUSH 10 ml ASDIRECTED PRN Administration Keep Vein Open - Re-Assessments/Exams Free Text/Narrative Re-Assessment/Exam: Patient is an 84-year-old male presenting to the emergency department with complaints of new onset of. He denies any dysuria or pain associated with this. I have ordered CBC, CMP, CRP, urinalysis, and a CT scan of the abdomen pelvis without contrast. 09/01/20 19:41 Hematology significant for hemoglobin minimally low at 12.7, BUN 23, creatinine 1.4. Urinalysis shows red turbid urine with 3+ protein, 3+ occult blood, RBCs too numerous to count, and 5-10 WBCs. It is nitrite and leukocyte esterase negative. CT scan of the abdomen pelvis shows mild focal wall thickening of the posterior wall of the urinary bladder measuring up to 9 mm in thickness. There is a left urinary bladder diverticulum. Urinary bladder appears otherwise unremarkable. There is severe prostate a megaly which is indenting upon the posterior wall of the urinary bladder. There is no evidence of renal calculi. Discussed findings with patient and his . Recommend that he is seen by urology for cystoscopy. I will send a referral both to [facility] and [facility] in [place] and they may schedule with the first available. Discussed return precautions including inability to void, dizziness, or any other concerning symptoms. Discharge instructions as documented. Departure - Departure Time of Disposition: 19:41 Disposition: Home, Self-Care 01 Condition: Good Clinical Impression: Gross hematuria - Discharge Information *PRESCRIPTION DRUG MONITORING PROGRAM REVIEWED*: No *COPY OF PRESCRIPTION DRUG MONITORING REPORT IN PATIENT ZOEY: No Instructions: Hematuria, Adult Referrals: Navi Husain MD [Primary Care Provider] - Davian Benito MD [Ordering Only Provider] - Sim Woods MD [Ordering Only Provider] - Additional Instructions: You were seen in the emergency department today for blood in your urine. Work- up included blood work, urinalysis, and a CT scan of your abdomen pelvis. Results of your work-up were found to be overall normal. As we discussed, it is essential that you see urology to have a cystoscopy completed. A referral has been sent to both [facility] and [facility] in [place]. The number to schedule with these facilities as listed below. You may schedule with the first available provider. If you should develop onset of dizziness, inability to pass your urine, or any other concerning symptoms, please not hesitate to return to the emergency department for reevaluation. Sepsis Event Note (ED) - Evaluation Sepsis Screening Result: No Definite Risk - Focused Exam Vital Signs: Vital Signs Temp Pulse Resp BP Pulse Ox 09/01/20 16:34 97.2 F 63 14 121/65 97 - My Orders Last 24 Hours: My Active Orders 09/01/20 16:41 Sodium Chloride 0.9% [Saline Flush] 10 ml FLUSH ASDIRECTED PRN Peripheral IV Insertion Adult [OM.PC] Stat 09/01/20 16:42 Peripheral IV Care [RC] . DIRECTED 09/01/20 17:23 Abdomen Pelvis wo Cont [CT] Stat 09/01/20 17:25 INR,PT,PROTHROMBIN TIME [COAG] Stat - Assessment/Plan Last 24 Hours: My Active Orders 09/01/20 16:41 Sodium Chloride 0.9% [Saline Flush] 10 ml FLUSH ASDIRECTED PRN Peripheral IV Insertion Adult [OM.PC] Stat 09/01/20 16:42 Peripheral IV Care [RC] . DIRECTED 09/01/20 17:23 Abdomen Pelvis wo Cont [CT] Stat 09/01/20 17:25 INR,PT,PROTHROMBIN TIME [COAG] Stat
--- NOTE | 2020-09-02 10:56 | CT ---
CT abdomen and pelvis Technique: Multiple axial sections were obtained from above the dome of the diaphragm inferiorly through the pubic symphysis. Intravenous and oral contrast was not utilized. Comparison: Prior CT abdomen and pelvis exam performed on 01/01/09. Findings: Slight scarring is noted within both lower lungs as well as probable atelectasis. Noncontrast appearance of the liver shows no focal abnormality. Spleen shows several calcifications which are believed to be incidental. No enlargement of the spleen is seen. Small calcified gallstones are seen within the gallbladder. Adrenal glands show no nodule. Pancreas appears within normal limits. Both kidneys show no abnormal calcifications or hydronephrosis. Aorta shows diffuse atherosclerotic change without aneurysm. Atherosclerotic change continues into the iliac vessels. No retroperitoneal adenopathy or mesenteric abnormalities are appreciated. Appendix is seen which is normal. There is mild bladder wall thickening posteriorly. Small bladder diverticulum is seen on the left side. Prostate gland is enlarged and shows evidence of calcifications. No free fluid or inflammatory change is appreciated. Mild increased stool is seen throughout the colon. Bone window settings were reviewed which show mild scattered degenerative change. No acute osseous abnormality is appreciated. Impression: 1. Bladder wall shows thickening posteriorly. Consider cystoscopy to further evaluate. 2. Other findings as noted above which appear to be chronic. Nothing acute is otherwise appreciated. Diagnostic code #3 I agree with preliminary report by Homar finalized on 09/01/20, 7:28 PM [employer]
== END 2020-09-01 19:59 | disposition home or self-care (01) ==
LOC: JD.ED 16:13
DX: R31.0 Gross hematuria (principal); E11.9 Type 2 diabetes mellitus without complications; M06.9 Rheumatoid arthritis, unspecified; M32.9 Systemic lupus erythematosus, unspecified; I10 Essential (primary) hypertension; N40.0 Benign prostatic hyperplasia without lower urinary tract symptoms; Z79.4 Long term (current) use of insulin; Z79.82 Long term (current) use of aspirin; Z79.899 Other long term (current) drug therapy
CPT/HCPCS: 36415; 74176; 74176-26; 80053; 81001; 85025; 85610; 86140; 99283; 99284-25

== ENCOUNTER 2022-01-22 04:34 | Inpatient (IN) | payer MEDICARE, OTHER ==
[2022-01-22] MEDS ORDERED: Meropenem 1 GM in Sodium Chloride 0.9% 100 ML IV STA (08:16)
[2022-01-22] MEDS ORDERED: Magnesium Hydroxide 400 MG/5 ML Susp 30 ML Cup PO PRN (08:41)
[2022-01-22] MEDS ORDERED: MAGNESIUM OXIDE 250 MG PO SCH (09:00)
[2022-01-22] MEDS ORDERED: Aspirin 81 MG Tab.Chew PO SCH (09:00)
[2022-01-22] MEDS ORDERED: Acetaminophen 325 MG Tab PO PRN (09:11)
[2022-01-22] MEDS ORDERED: oxyCODONE 5 MG Tab PO PRN (09:11)
[2022-01-22] MEDS ORDERED: Sodium Chloride 0.9% 1,000 ML IV SCH (09:15)
[2022-01-22] MEDS ORDERED: Meropenem 1 GM SDV ONE ×2 (09:53→09:55)
[2022-01-22] MEDS ORDERED: Sodium Chloride 0.9% 100 ML ONE (09:59)
[2022-01-22] MEDS: metFORMIN 500 MG Tab PO SCH ×2 (13:17→20:33)
[2022-01-22] MEDS ORDERED: Sennosides 8.6 MG Tab PO PRN (13:24)
[2022-01-22] MEDS: Lisinopril 10 MG Tab PO SCH (14:09)
[2022-01-22] MEDS: Tamsulosin 0.4 MG Cap.ER PO SCH (14:10)
[2022-01-22] MEDS ORDERED: metFORMIN 500 MG Tab PO SCH (17:00)
[2022-01-22] MEDS: Insulin Regular, Human 100 Units/ML 3 ML Vial SUBCUT SCH (18:00)
[2022-01-22] MEDS: diphenhydrAMINE 50 MG Cap PO PRN (20:33)
[2022-01-23] MEDS: Meropenem Premix 500 MG in Premix Bag 1 BAG IV SCH ×3 (07:33→23:29)
[2022-01-23] MEDS: Lisinopril 10 MG Tab PO SCH ×2 (07:55→09:17)
[2022-01-23] MEDS: metFORMIN 500 MG Tab PO SCH ×3 (07:55→20:17)
[2022-01-23] MEDS: Tamsulosin 0.4 MG Cap.ER PO SCH ×2 (07:56→09:17)
[2022-01-23] MEDS ORDERED: Non-Formulary Medication 1 Each (Insulin Degludec [Tresiba] 100 UNIT/ML Vial) SQ SCH (08:00)
[2022-01-23] MEDS: Insulin Regular, Human 100 Units/ML 3 ML Vial SUBCUT SCH ×2 (09:38→18:18)
[2022-01-23] MEDS: diphenhydrAMINE 50 MG Cap PO PRN (20:21)
[2022-01-24] MEDS: Lisinopril 10 MG Tab PO SCH (08:32)
[2022-01-24] MEDS: Tamsulosin 0.4 MG Cap.ER PO SCH (08:32)
[2022-01-24] MEDS: metFORMIN 500 MG Tab PO SCH (08:32)
[2022-01-24] MEDS: Insulin Regular, Human 100 Units/ML 3 ML Vial SUBCUT SCH (08:33)
[2022-01-24] MEDS: Meropenem Premix 500 MG in Premix Bag 1 BAG IV SCH (08:33)
== END 2022-01-24 13:10 | disposition home or self-care (01) | DRG 177 ==
LOC: JD.ED 04:34 → JD.MS 12:53
PROVIDERS: ADMIT Internal Medicine; ATTEND Internal Medicine
PROC: XW033N5 Introduction of Meropenem-vaborbactam Anti-infective into Peripheral Vein, Percutaneous Approach, New Technology Group 5 (ICD-10-PCS; principal; 2022-01-23)
DX: J69.0 Pneumonitis due to inhalation of food and vomit (principal); J96.01 Acute respiratory failure with hypoxia; I10 Essential (primary) hypertension; R31.0 Gross hematuria; K59.09 Other constipation; M19.90 Unspecified osteoarthritis, unspecified site; Z20.822 Contact with and (suspected) exposure to COVID-19; Z96.611 Presence of right artificial shoulder joint; E11.649 Type 2 diabetes mellitus with hypoglycemia without coma; Z96.652 Presence of left artificial knee joint; H54.7 Unspecified visual loss; H91.90 Unspecified hearing loss, unspecified ear; G25.81 Restless legs syndrome; N40.0 Benign prostatic hyperplasia without lower urinary tract symptoms; Z95.2 Presence of prosthetic heart valve; Z98.49 Cataract extraction status, unspecified eye; Z95.1 Presence of aortocoronary bypass graft; Z79.82 Long term (current) use of aspirin; Z79.899 Other long term (current) drug therapy; Z79.4 Long term (current) use of insulin
CPT/HCPCS: 36415; 36600; 71046; 80053; 82803; 82947; 83605; 83880; 84484; 85007; 85027; 85379; 87040 ×2; 87154; 93005; 96365; 99285; J2185; U0002; 83735; 85025; 87641; 93010; 94761; 99284; A9270-GY; J1815-GY; Q0163

== ENCOUNTER 2022-08-09 18:16 | Emergency (ER) | payer MEDICARE, OTHER ==
[2022-08-09 19:07] LABS: ACETAMINOPHEN 4 ug/mL (10-30)
[2022-08-09 19:32] LABS: CORONAVIRUS COVID-19 NAA NEGATIVE (NEGATIVE)
[2022-08-09 19:49] LABS: ESTIMATED GFR 45 mL/min (>60)
== END 2022-08-09 22:45 | disposition home or self-care (01) ==
LOC: JD.ED 18:16
DX: R41.82 Altered mental status, unspecified (principal); I10 Essential (primary) hypertension; E11.9 Type 2 diabetes mellitus without complications; Z79.82 Long term (current) use of aspirin; Z79.899 Other long term (current) drug therapy; Z79.4 Long term (current) use of insulin; Z20.822 Contact with and (suspected) exposure to COVID-19
CPT/HCPCS: 0241U; 36415; 36600; 70450; 71045; 80053; 80143; 80179; 80306; 80307; 81001; 82009; 82803; 82947; 83605; 83735; 83880; 84443; 84484; 85007; 85027; 85379; 85610; 85730; 86140; 87040; 93005; 99285

== ENCOUNTER 2023-08-09 10:08 | Emergency (ER) | payer MEDICARE, OTHER ==
[2023-08-09] MEDS ORDERED: Diclofenac Sodium 1% Gel 100 GM Tube TOP ONE (11:17)
[2023-08-09] MEDS ORDERED: Ketorolac 30 MG/ML SDV IM ONE (11:26)
== END 2023-08-09 11:47 | disposition home or self-care (01) ==
LOC: JD.ED 10:08
DX: M25.561 Pain in right knee (principal); M25.562 Pain in left knee; I10 Essential (primary) hypertension; E11.9 Type 2 diabetes mellitus without complications; Z79.84 Long term (current) use of oral hypoglycemic drugs; Z79.82 Long term (current) use of aspirin; Z79.4 Long term (current) use of insulin; Z79.899 Other long term (current) drug therapy; Z95.1 Presence of aortocoronary bypass graft
CPT/HCPCS: 96372; 99283; A9270; J1885

== ENCOUNTER 2024-05-16 10:27 | Emergency (ER) | payer MEDICARE, OTHER ==
[2024-05-16 13:12] LABS: BASOPHILS PERCENT AUTO 0.4 % (0.0-1.0); EOSINOPHILS ABSOLUTE AUTO 0.2 K/mm3 (0.0-0.4); EOSINOPHILS PERCENT AUTO 1.8 % (0.0-6.0); HEMATOCRIT 34.7 % (42.0-52.0); HEMOGLOBIN 11.5 gm/dl (14.0-18.0); IMMATURE GRAN ABSOLUTE AUTO 0.02 K/mm3 (0.00-0.05); IMMATURE GRAN PERCENT AUTO 0.2 % (0.0-0.4); LYMPHOCYTES ABSOLUTE AUTO 1.1 K/mm3 (1.0-4.8); LYMPHOCYTES PERCENT AUTO 13.4 % (24.0-44.0); MEAN CORPUSCULAR HEMOGLOBIN 31.3 pg (28.0-32.0); MEAN CORPUSCULAR HGB CONC 33.1 g/dl (32.0-36.0); MEAN CORPUSCULAR VOLUME 94.6 fl (83.0-99.0); MEAN PLATELET VOLUME 9.9 fl (9.4-12.4); MONOCYTES ABSOLUTE AUTO 0.7 K/mm3 (0.0-0.8); MONOCYTES PERCENT AUTO 8.2 % (0.0-8.0); NEUTROPHILS ABSOLUTE AUTO 6.4 K/mm3 (1.8-7.7); PLATELET COUNT,PLT 298 K/mm3 (150-400); RED BLOOD CELL COUNT 3.67 M/mm3 (4.52-5.90); WHITE BLOOD CELL COUNT,WBC 8.46 K/mm3 (3.9-11.3)
[2024-05-16 13:33] LABS: INR 1.75; PROTHROMBIN TIME 17.9 SECONDS (9.7-12.0)
[2024-05-16 13:42] LABS: A/G RATIO 1.1 (1-2); ALBUMIN 3.6 g/dl (3.4-5.0); ANION GAP 13.9 (5-15); BILIRUBIN TOTAL 1.1 mg/dL (0.2-1.0); BUN/CREATININE RATIO 15.3 (14-18); CALCIUM 9.3 mg/dL (8.5-10.1); CREATININE 1.7 mg/dL (0.7-1.3); EST CRCL DRUG DOSING (CG) 31.38 mL/min; POTASSIUM,K 3.9 mEq/L (3.5-5.1)
[2024-05-16 15:04] LABS: APPEARANCE,URINE CLOUDY (Clear); BILIRUBIN,URINE NEGATIVE (Negative); COLOR,URINE YELLOW (Yellow); GLUCOSE,URINE TRACE (Negative); KETONES,URINE 1+ (Negative); LEUKOCYTE ESTERASE,URINE 2+ (Negative); NITRITE,URINE NEGATIVE (Negative); OCCULT BLOOD,URINE 2+ (Negative); PH,URINE 8.5 (5.0-8.0); PROTEIN,URINE 3+ (Negative); UROBILINOGEN,URINE 0.2 (0.2-1.0)
[2024-05-16 15:12] LABS: RBC,URINE >100 /hpf (0-5)
[2024-05-16 15:13] LABS: BACTERIA,URINE MANY /hpf (FEW); EPITHELIAL CELLS,URINE 0-5 /hpf (0-5); MUCUS,URINE FEW /hpf (FEW); WBC,URINE >100 /hpf (0-5)
== END 2024-05-16 15:33 | disposition home or self-care (01) ==
LOC: JD.ED 10:27
DX: N30.00 Acute cystitis without hematuria (principal); I10 Essential (primary) hypertension; E11.40 Type 2 diabetes mellitus with diabetic neuropathy, unspecified; Z79.899 Other long term (current) drug therapy; Z79.82 Long term (current) use of aspirin; Z79.4 Long term (current) use of insulin; Z79.84 Long term (current) use of oral hypoglycemic drugs; Z88.2 Allergy status to sulfonamides; Z88.8 Allergy status to other drugs, medicaments and biological substances
CPT/HCPCS: 36415; 51798; 80053; 81001; 85025; 85610; 87086; 87088; 87186; 99283; 99283-25

== ENCOUNTER 2024-07-26 14:55 | Inpatient (IN) | payer OTHER, MEDICARE ==
[2024-07-26 16:43] LABS: BASOPHILS PERCENT AUTO 0.2 % (0.0-1.0); EOSINOPHILS ABSOLUTE AUTO 0.1 K/mm3 (0.0-0.4); HEMATOCRIT 37.8 % (42.0-52.0); HEMOGLOBIN 12.1 gm/dl (14.0-18.0); IMMATURE GRAN ABSOLUTE AUTO 0.06 K/mm3 (0.00-0.05); IMMATURE GRAN PERCENT AUTO 0.5 % (0.0-0.4); LYMPHOCYTES ABSOLUTE AUTO 1.3 K/mm3 (1.0-4.8); LYMPHOCYTES PERCENT AUTO 11.1 % (24.0-44.0); MEAN CORPUSCULAR HEMOGLOBIN 31.2 pg (28.0-32.0); MEAN CORPUSCULAR VOLUME 97.4 fl (83.0-99.0); MEAN PLATELET VOLUME 10.4 fl (9.4-12.4); MONOCYTES ABSOLUTE AUTO 0.7 K/mm3 (0.0-0.8); MONOCYTES PERCENT AUTO 5.4 % (0.0-8.0); NEUTROPHILS ABSOLUTE AUTO 9.9 K/mm3 (1.8-7.7); NEUTROPHILS PERCENT AUTO 81.8 % (41.0-71.0); PLATELET COUNT,PLT 238 K/mm3 (150-400); RED BLOOD CELL COUNT 3.88 M/mm3 (4.52-5.90); WHITE BLOOD CELL COUNT,WBC 12.09 K/mm3 (3.9-11.3)
[2024-07-26 17:03] LABS: INR 3.48
[2024-07-26 17:06] LABS: ALBUMIN 3.6 g/dl (3.4-5.0); ANION GAP 15.6 (5-15); BILIRUBIN TOTAL 0.7 mg/dL (0.2-1.0); CALCIUM 9.2 mg/dL (8.5-10.1); EST CRCL DRUG DOSING (CG) 26.67 mL/min; PROTEIN TOTAL,TP 7.1 g/dl (6.4-8.2)
[2024-07-26 17:10] LABS: POTASSIUM,K 3.6 mEq/L (3.5-5.1)
[2024-07-26 18:16] LABS: APPEARANCE,URINE CLEAR (Clear); BILIRUBIN,URINE NEGATIVE (Negative); COLOR,URINE YELLOW (Yellow); GLUCOSE,URINE NEGATIVE (Negative); KETONES,URINE NEGATIVE (Negative); LEUKOCYTE ESTERASE,URINE 2+ (Negative); NITRITE,URINE NEGATIVE (Negative); OCCULT BLOOD,URINE NEGATIVE (Negative); PH,URINE 7.5 (5.0-8.0); PROTEIN,URINE TRACE (Negative); UROBILINOGEN,URINE 0.2 (0.2-1.0)
[2024-07-26] MEDS: Diphtheria,Pertussis(Acell),Tetanus Vaccine 0.5 ML Syringe IM ONE (18:30)
[2024-07-26 18:45] LABS: RBC,URINE 0-5 /hpf (0-5)
[2024-07-26 18:46] LABS: BACTERIA,URINE FEW /hpf (FEW); MUCUS,URINE FEW /hpf (FEW); SQUAMOUS EPITHELIAL CELLS,UR 0-5 /hpf (0-5); WBC,URINE 50-75 /hpf (0-5)
[2024-07-26] MEDS: Acetaminophen 325 MG Tab PO ONE (18:55)
[2024-07-26] MEDS: Bacitracin Oint 15 GM Tube TOP ONE (22:31)
[2024-07-26] MEDS: Melatonin 3 MG Tab PO ONE (23:57)
[2024-07-27] MEDS: Cephalexin 500 MG Cap PO ONE (11:11)
[2024-07-27] MEDS ORDERED: Ondansetron 4 MG/2 ML SDV IV PRN (12:58)
[2024-07-27] MEDS ORDERED: cefTRIAXone 2 GM in Sodium Chloride 0.9% 100 ML IV SCH (13:00)
[2024-07-27] MEDS: cefTRIAXone 2 GM Vial IV SCH (14:44)
[2024-07-27] MEDS: Insulin Lispro 100 Unit/ML 3 ML KwikPen SUBCUT SCH (18:04)
[2024-07-27] MEDS: Warfarin Sliding Scale PO SCH (18:09)
[2024-07-27] MEDS: Polyethylene Glycol 3350 Powder 17 GM Packet PO SCH (19:53)
[2024-07-27] MEDS: Acetaminophen 325 MG Tab PO PRN (19:55)
[2024-07-28 04:45] LABS: HEMOGLOBIN 11.5 gm/dl (14.0-18.0); MEAN CORPUSCULAR HEMOGLOBIN 30.6 pg (28.0-32.0); MEAN CORPUSCULAR HGB CONC 33.8 g/dl (32.0-36.0); MEAN CORPUSCULAR VOLUME 90.4 fl (83.0-99.0); MEAN PLATELET VOLUME 10.4 fl (9.4-12.4); PLATELET COUNT,PLT 200 K/mm3 (150-400); RED BLOOD CELL COUNT 3.76 M/mm3 (4.52-5.90); WHITE BLOOD CELL COUNT,WBC 15.96 K/mm3 (3.9-11.3)
[2024-07-28 05:03] LABS: INR 3.17; PROTHROMBIN TIME 31.2 SECONDS (9.7-12.0)
[2024-07-28 05:09] LABS: ALBUMIN 3.4 g/dl (3.4-5.0); ANION GAP 18.7 (5-15); BILIRUBIN TOTAL 1.9 mg/dL (0.2-1.0); BUN/CREATININE RATIO 22.3 (14-18); CALCIUM 8.9 mg/dL (8.5-10.1); CREATININE 2.2 mg/dL (0.7-1.3); EST CRCL DRUG DOSING (CG) 24.24 mL/min; POTASSIUM,K 3.7 mEq/L (3.5-5.1); PROTEIN TOTAL,TP 6.9 g/dl (6.4-8.2)
[2024-07-28] MEDS: Insulin Lispro 100 Unit/ML 3 ML KwikPen SUBCUT SCH (08:16)
[2024-07-28] MEDS: Insulin Glargine,Human Rec. Analog 100 Units/ML 3 ML Pen SUBCUT SCH (08:17)
[2024-07-28] MEDS: Clopidogrel 75 MG Tab PO SCH (08:22)
[2024-07-28] MEDS: Tamsulosin 0.4 MG Cap.ER PO SCH (08:22)
[2024-07-28] MEDS: Metoprolol Succinate 25 MG Tab.ER PO SCH (08:22)
[2024-07-28] MEDS: DULoxetine 30 MG Cap PO SCH (08:22)
[2024-07-28] MEDS: Warfarin 5 MG Tab PO SCH (18:18)
[2024-07-29 04:38] LABS: HEMATOCRIT 31.8 % (42.0-52.0); MEAN CORPUSCULAR HEMOGLOBIN 30.7 pg (28.0-32.0); MEAN CORPUSCULAR HGB CONC 34.6 g/dl (32.0-36.0); MEAN CORPUSCULAR VOLUME 88.8 fl (83.0-99.0); MEAN PLATELET VOLUME 10.7 fl (9.4-12.4); PLATELET COUNT,PLT 197 K/mm3 (150-400); RED BLOOD CELL COUNT 3.58 M/mm3 (4.52-5.90); WHITE BLOOD CELL COUNT,WBC 12.72 K/mm3 (3.9-11.3)
[2024-07-29 05:24] LABS: A/G RATIO 0.9 (1-2); ALBUMIN 3.1 g/dl (3.4-5.0); BILIRUBIN TOTAL 0.9 mg/dL (0.2-1.0); BUN/CREATININE RATIO 32.9 (14-18); CALCIUM 8.8 mg/dL (8.5-10.1); CREATININE 1.7 mg/dL (0.7-1.3); EST CRCL DRUG DOSING (CG) 31.38 mL/min; POTASSIUM,K 3.4 mEq/L (3.5-5.1); PROTEIN TOTAL,TP 6.4 g/dl (6.4-8.2)
[2024-07-29 05:31] LABS: ANION GAP 18.4 (5-15)
[2024-07-29 06:33] LABS: INR 2.12; PROTHROMBIN TIME 21.4 SECONDS (9.7-12.0)
[2024-07-29] MEDS: oxyCODONE 5 MG Tab PO PRN (11:29)
[2024-07-29] MEDS: Diclofenac Sodium 1% Gel 100 GM Tube TOP PRN (15:37)
[2024-07-29] MEDS: Warfarin 5 MG Tab PO SCH (17:29)
[2024-07-30 06:13] LABS: INR 1.89; PROTHROMBIN TIME 19.2 SECONDS (9.7-12.0)
[2024-07-30 06:30] LABS: A/G RATIO 0.9 (1-2); ALBUMIN 3.1 g/dl (3.4-5.0); ANION GAP 15.5 (5-15); BUN/CREATININE RATIO 31.3 (14-18); C-REACTIVE PROTEIN 9.29 mg/dL (<0.30); CALCIUM 8.6 mg/dL (8.5-10.1); CREATININE 1.6 mg/dL (0.7-1.3); EST CRCL DRUG DOSING (CG) 33.34 mL/min; POTASSIUM,K 3.5 mEq/L (3.5-5.1); PROTEIN TOTAL,TP 6.4 g/dl (6.4-8.2)
[2024-07-30] MEDS: Acetaminophen 325 MG Tab PO SCH (08:40)
[2024-07-30] MEDS: Metoprolol Succinate 25 MG Tab.ER PO SCH (08:41)
[2024-07-30] MEDS: Lactulose Soln 10 GM/15 ML 30 ML UD Cup PO SCH (10:51)
[2024-07-30] MEDS: Warfarin 7.5 MG Tab PO SCH (17:32)
[2024-07-30] MEDS: Ampicillin 2 GM in Sodium Chloride 0.9% 100 ML IV SCH (18:04)
[2024-07-30] MEDS: Sodium Chloride 0.9% 50 ML IV SCH (18:04)
[2024-07-30] MEDS: Potassium Chloride 20 MEQ Tab.ER PO ONE (18:04)
[2024-07-30] MEDS ORDERED: 50% Dextrose in Water 50 ML Syringe IVPUSH PRN (18:26)
[2024-07-30] MEDS: Gabapentin 100 MG Cap PO SCH (21:01)
[2024-07-31 05:53] LABS: BASOPHILS PERCENT AUTO 0.3 % (0.0-1.0); EOSINOPHILS ABSOLUTE AUTO 0.5 K/mm3 (0.0-0.4); EOSINOPHILS PERCENT AUTO 5.5 % (0.0-6.0); HEMATOCRIT 31.4 % (42.0-52.0); HEMOGLOBIN 10.7 gm/dl (14.0-18.0); IMMATURE GRAN ABSOLUTE AUTO 0.02 K/mm3 (0.00-0.05); IMMATURE GRAN PERCENT AUTO 0.2 % (0.0-0.4); LYMPHOCYTES ABSOLUTE AUTO 1.2 K/mm3 (1.0-4.8); LYMPHOCYTES PERCENT AUTO 12.7 % (24.0-44.0); MEAN CORPUSCULAR HEMOGLOBIN 30.7 pg (28.0-32.0); MEAN CORPUSCULAR HGB CONC 34.1 g/dl (32.0-36.0); MEAN PLATELET VOLUME 10.2 fl (9.4-12.4); MONOCYTES ABSOLUTE AUTO 0.9 K/mm3 (0.0-0.8); MONOCYTES PERCENT AUTO 9.1 % (0.0-8.0); NEUTROPHILS ABSOLUTE AUTO 6.8 K/mm3 (1.8-7.7); NEUTROPHILS PERCENT AUTO 72.2 % (41.0-71.0); PLATELET COUNT,PLT 243 K/mm3 (150-400); RED BLOOD CELL COUNT 3.49 M/mm3 (4.52-5.90); WHITE BLOOD CELL COUNT,WBC 9.37 K/mm3 (3.9-11.3)
[2024-07-31 06:10] LABS: INR 1.91; PROTHROMBIN TIME 19.4 SECONDS (9.7-12.0)
[2024-07-31 06:13] LABS: ANION GAP 12.4 (5-15); BUN/CREATININE RATIO 29.4 (14-18); C-REACTIVE PROTEIN 9.03 mg/dL (<0.30); CALCIUM 8.7 mg/dL (8.5-10.1); CREATININE 1.6 mg/dL (0.7-1.3); EST CRCL DRUG DOSING (CG) 33.34 mL/min; MAGNESIUM 2.4 mg/dL (1.8-2.4); PHOSPHORUS 4.5 mg/dL (2.6-4.7); POTASSIUM,K 3.4 mEq/L (3.5-5.1)
[2024-07-31] MEDS: Insulin Glargine,Human Rec. Analog 100 Units/ML 3 ML Pen SUBCUT SCH (09:16)
[2024-07-31] MEDS: Warfarin 5 MG Tab PO SCH (18:00)
[2024-07-31] MEDS: Bisacodyl 10 MG Supp RECTAL ONE (19:25)
[2024-07-31] MEDS: Potassium Chloride 20 MEQ Tab.ER PO ONE (20:50)
[2024-08-01 06:18] LABS: INR 2.37; PROTHROMBIN TIME 23.7 SECONDS (9.7-12.0)
[2024-08-01 06:21] LABS: ANION GAP 12.9 (5-15); BUN/CREATININE RATIO 28.5 (14-18); C-REACTIVE PROTEIN 6.73 mg/dL (<0.30); CALCIUM 8.4 mg/dL (8.5-10.1); CREATININE 1.3 mg/dL (0.7-1.3); EST CRCL DRUG DOSING (CG) 33.24 mL/min; POTASSIUM,K 3.9 mEq/L (3.5-5.1)
[2024-08-01] MEDS: Warfarin 5 MG Tab PO SCH (18:13)
[2024-08-01] MEDS ORDERED: Morphine 2 MG/ML SYRINGE ONE (19:01)
[2024-08-01] MEDS: Morphine 2 MG/ML SYRINGE IVPUSH ONE (19:05)
== END 2024-08-01 19:10 | disposition home or self-care (01) | DRG 536 ==
LOC: JD.ED 14:55 → UNDOADMIN 07-27 12:19 → JD.MS 07-27 12:19
PROVIDERS: ADMIT Internal Medicine; ATTEND Student in an Organized Health Care Education/Training Program
DX: S72.001A Fracture of unspecified part of neck of right femur, initial encounter for closed fracture (principal); N30.00 Acute cystitis without hematuria; I50.42 Chronic combined systolic (congestive) and diastolic (congestive) heart failure; I13.0 Hypertensive heart and chronic kidney disease with heart failure and stage 1 through stage 4 chronic kidney disease, or unspecified chronic kidney disease; S80.211A Abrasion, right knee, initial encounter; R26.89 Other abnormalities of gait and mobility; Z23 Encounter for immunization; M51.369 Other intervertebral disc degeneration, lumbar region without mention of lumbar back pain or lower extremity pain; I48.91 Unspecified atrial fibrillation; H54.7 Unspecified visual loss; N40.0 Benign prostatic hyperplasia without lower urinary tract symptoms; K59.09 Other constipation; W22.8XXA Striking against or struck by other objects, initial encounter; Z96.619 Presence of unspecified artificial shoulder joint; Z96.659 Presence of unspecified artificial knee joint; R26.2 Difficulty in walking, not elsewhere classified; R79.1 Abnormal coagulation profile; N18.32 Chronic kidney disease, stage 3b; E11.22 Type 2 diabetes mellitus with diabetic chronic kidney disease; M12.9 Arthropathy, unspecified; M54.41 Lumbago with sciatica, right side; M54.42 Lumbago with sciatica, left side; K59.00 Constipation, unspecified; Z66 Do not resuscitate; Z79.01 Long term (current) use of anticoagulants; Z88.2 Allergy status to sulfonamides; Z88.8 Allergy status to other drugs, medicaments and biological substances; Z95.2 Presence of prosthetic heart valve; Z79.82 Long term (current) use of aspirin; Z79.4 Long term (current) use of insulin; Z79.2 Long term (current) use of antibiotics; Z79.84 Long term (current) use of oral hypoglycemic drugs; Z79.1 Long term (current) use of non-steroidal anti-inflammatories (NSAID); Z98.49 Cataract extraction status, unspecified eye; Z95.1 Presence of aortocoronary bypass graft; Z98.890 Other specified postprocedural states; Z79.899 Other long term (current) drug therapy; Z87.01 Personal history of pneumonia (recurrent); Z79.02 Long term (current) use of antithrombotics/antiplatelets; Y93.89 Activity, other specified; Y92.410 Unspecified street and highway as the place of occurrence of the external cause
CPT/HCPCS: 36415; 70450; 70450-26; 71045; 71045-26; 72148; 72148-26; 73562-26-RT; 73562-RT; 73590-26-RT; 73590-RT; 73620-26-RT; 73620-RT; 73700-26-RT; 73700-RT; 74018; 74018-26; 80048; 80053; 81001; 82947; 83036; 83735; 84100; 85025; 85027; 85610; 86140; 87086; 87088; 87186; 87428-QW; 90471; 90715; 94760; 97110-GP; 97162-GP; 97530-GP; 99284; 99285-25; A9270-GY; J0290; J0696; J1815; J1815-GY; J2270; J3490

== ENCOUNTER 2024-10-07 11:37 | Inpatient (IN) | payer MEDICAID, MEDICARE, OTHER ==
[2024-10-07] MEDS: Morphine 2 MG/ML SYRINGE IVPUSH ONE (15:25)
[2024-10-07] MEDS: Sodium Chloride 0.9% 10 ML Syringe FLUSH PRN (15:28)
[2024-10-07 15:29] LABS: BASOPHILS PERCENT AUTO 0.3 % (0.0-1.0); EOSINOPHILS ABSOLUTE AUTO 0.7 K/mm3 (0.0-0.4); EOSINOPHILS PERCENT AUTO 6.6 % (0.0-6.0); HEMATOCRIT 32.9 % (42.0-52.0); HEMOGLOBIN 10.8 gm/dl (14.0-18.0); IMMATURE GRAN ABSOLUTE AUTO 0.04 K/mm3 (0.00-0.05); IMMATURE GRAN PERCENT AUTO 0.4 % (0.0-0.4); LYMPHOCYTES ABSOLUTE AUTO 1.5 K/mm3 (1.0-4.8); LYMPHOCYTES PERCENT AUTO 13.9 % (24.0-44.0); MEAN CORPUSCULAR HEMOGLOBIN 29.8 pg (28.0-32.0); MEAN CORPUSCULAR HGB CONC 32.8 g/dl (32.0-36.0); MEAN CORPUSCULAR VOLUME 90.6 fl (83.0-99.0); MEAN PLATELET VOLUME 10.1 fl (9.4-12.4); MONOCYTES PERCENT AUTO 8.6 % (0.0-8.0); NEUTROPHILS ABSOLUTE AUTO 7.7 K/mm3 (1.8-7.7); NEUTROPHILS PERCENT AUTO 70.2 % (41.0-71.0); PLATELET COUNT,PLT 220 K/mm3 (150-400); RED BLOOD CELL COUNT 3.63 M/mm3 (4.52-5.90); WHITE BLOOD CELL COUNT,WBC 11.01 K/mm3 (3.9-11.3)
[2024-10-07 15:49] LABS: INR 1.89; PROTHROMBIN TIME 19.2 SECONDS (9.7-12.0)
[2024-10-07 15:55] LABS: A/G RATIO 0.8 (1-2); ALBUMIN 3.2 g/dl (3.4-5.0); ANION GAP 13.8 (5-15); BUN/CREATININE RATIO 17.4 (14-18); C-REACTIVE PROTEIN 10.58 mg/dL (<0.30); CREATININE 1.9 mg/dL (0.7-1.3); EST CRCL DRUG DOSING (CG) 28.07 mL/min; POTASSIUM,K 3.8 mEq/L (3.5-5.1); PROTEIN TOTAL,TP 7.1 g/dl (6.4-8.2)
[2024-10-07] MEDS ORDERED: Naloxone 0.4 MG/ML SDV IVPUSH PRN (18:26)
[2024-10-07] MEDS ORDERED: oxyCODONE 5 MG Tab PO PRN (18:26)
[2024-10-07] MEDS ORDERED: Sennosides/Docusate Sodium 50-8.6 MG Tab PO PRN (18:26)
[2024-10-07] MEDS ORDERED: Morphine 2 MG/ML SYRINGE IVPUSH PRN (18:26)
[2024-10-07] MEDS ORDERED: Acetaminophen 325 MG Tab PO PRN (18:26)
[2024-10-07] MEDS: Bumetanide 1 MG/4 ML MDV IVPUSH ONE (19:36)
[2024-10-07 19:49] LABS: APPEARANCE,URINE CLEAR (Clear); BILIRUBIN,URINE NEGATIVE (Negative); COLOR,URINE YELLOW (Yellow); GLUCOSE,URINE NEGATIVE (Negative); KETONES,URINE NEGATIVE (Negative); LEUKOCYTE ESTERASE,URINE 3+ (Negative); NITRITE,URINE NEGATIVE (Negative); OCCULT BLOOD,URINE 1+ (Negative); PROTEIN,URINE 1+ (Negative); UROBILINOGEN,URINE 0.2 (0.2-1.0)
[2024-10-07 20:06] LABS: BACTERIA,URINE MODERATE /hpf (FEW); MUCUS,URINE FEW /hpf (FEW); SQUAMOUS EPITHELIAL CELLS,UR 0-5 /hpf (0-5)
[2024-10-07] MEDS: oxyCODONE 5 MG Tab PO PRN (20:57)
[2024-10-07] MEDS ORDERED: 50% Dextrose in Water 50 ML Syringe IVPUSH PRN (20:58)
[2024-10-07] MEDS: cefTRIAXone 1 GM Vial IVPUSH SCH (21:09)
[2024-10-07] MEDS: Acetaminophen 325 MG Tab PO SCH (23:15)
[2024-10-07] MEDS: Sennosides/Docusate Sodium 50-8.6 MG Tab PO SCH (23:16)
[2024-10-07] MEDS: Pregabalin 25 MG Cap PO SCH (23:16)
[2024-10-07] MEDS: Insulin Lispro 100 Unit/ML 3 ML KwikPen SUBCUT SCH (23:18)
[2024-10-08] MEDS: Gabapentin 100 MG Cap PO SCH (02:42)
[2024-10-08] MEDS: Bumetanide 1 MG Tab PO SCH (05:44)
[2024-10-08] MEDS: Pantoprazole 40 MG Tab.CR PO SCH (05:44)
[2024-10-08 06:15] LABS: HEMATOCRIT 28.8 % (42.0-52.0); HEMOGLOBIN 9.4 gm/dl (14.0-18.0); MEAN CORPUSCULAR HEMOGLOBIN 29.7 pg (28.0-32.0); MEAN CORPUSCULAR HGB CONC 32.6 g/dl (32.0-36.0); MEAN CORPUSCULAR VOLUME 90.9 fl (83.0-99.0); MEAN PLATELET VOLUME 10.9 fl (9.4-12.4); PLATELET COUNT,PLT 204 K/mm3 (150-400); RED BLOOD CELL COUNT 3.17 M/mm3 (4.52-5.90); WHITE BLOOD CELL COUNT,WBC 7.55 K/mm3 (3.9-11.3)
[2024-10-08 06:17] LABS: ANION GAP 10.4 (5-15); CALCIUM 8.6 mg/dL (8.5-10.1); CREATININE 1.6 mg/dL (0.7-1.3); EST CRCL DRUG DOSING (CG) 33.34 mL/min; POTASSIUM,K 3.4 mEq/L (3.5-5.1)
[2024-10-08] MEDS: Heparin Sodium 5,000 Units/ML Vial SUBCUT SCH (07:41)
[2024-10-08 08:26] LABS: CORONAVIRUS COVID-19 NAA NEGATIVE (NEGATIVE); INFLUENZA A NAA NEGATIVE (NEGATIVE); RESPIRATORY SYNCYTIAL VIR NAA NEGATIVE (NEGATIVE)
[2024-10-08] MEDS: Metoprolol Succinate 25 MG Tab.ER PO SCH (10:10)
[2024-10-08] MEDS: Potassium Chloride 20 MEQ Tab.ER PO SCH (10:11)
[2024-10-08] MEDS: DULoxetine 30 MG Cap PO SCH (10:11)
[2024-10-08] MEDS: Tamsulosin 0.4 MG Cap.ER PO SCH (21:13)
[2024-10-08] MEDS: Melatonin 3 MG Tab PO SCH (21:13)
[2024-10-09 05:27] LABS: HEMATOCRIT 30.4 % (42.0-52.0); MEAN CORPUSCULAR HEMOGLOBIN 29.5 pg (28.0-32.0); MEAN CORPUSCULAR HGB CONC 32.9 g/dl (32.0-36.0); MEAN CORPUSCULAR VOLUME 89.7 fl (83.0-99.0); MEAN PLATELET VOLUME 10.9 fl (9.4-12.4); PLATELET COUNT,PLT 223 K/mm3 (150-400); RED BLOOD CELL COUNT 3.39 M/mm3 (4.52-5.90); WHITE BLOOD CELL COUNT,WBC 7.38 K/mm3 (3.9-11.3)
[2024-10-09 05:56] LABS: ANION GAP 10.5 (5-15); BUN/CREATININE RATIO 22.7 (14-18); CALCIUM 8.8 mg/dL (8.5-10.1); CREATININE 1.5 mg/dL (0.7-1.3); EST CRCL DRUG DOSING (CG) 35.56 mL/min; POTASSIUM,K 3.5 mEq/L (3.5-5.1)
[2024-10-09 06:00] LABS: INR 1.72; PROTHROMBIN TIME 17.6 SECONDS (9.7-12.0)
[2024-10-10 05:29] LABS: HEMATOCRIT 31.7 % (42.0-52.0); HEMOGLOBIN 10.5 gm/dl (14.0-18.0); MEAN CORPUSCULAR HEMOGLOBIN 30.2 pg (28.0-32.0); MEAN CORPUSCULAR HGB CONC 33.1 g/dl (32.0-36.0); MEAN CORPUSCULAR VOLUME 91.1 fl (83.0-99.0); MEAN PLATELET VOLUME 10.9 fl (9.4-12.4); PLATELET COUNT,PLT 234 K/mm3 (150-400); RED BLOOD CELL COUNT 3.48 M/mm3 (4.52-5.90)
[2024-10-10 05:49] LABS: A/G RATIO 0.8 (1-2); ALBUMIN 2.8 g/dl (3.4-5.0); ANION GAP 10.4 (5-15); BILIRUBIN TOTAL 0.8 mg/dL (0.2-1.0); BUN/CREATININE RATIO 21.4 (14-18); CALCIUM 8.7 mg/dL (8.5-10.1); CREATININE 1.4 mg/dL (0.7-1.3); EST CRCL DRUG DOSING (CG) 38.1 mL/min; POTASSIUM,K 3.4 mEq/L (3.5-5.1); PROTEIN TOTAL,TP 6.5 g/dl (6.4-8.2)
[2024-10-10 06:03] LABS: INR 1.47; PROTHROMBIN TIME 15.2 SECONDS (9.7-12.0)
[2024-10-10] MEDS: Potassium Chloride 10 MEQ in Premix Bag 1 BAG IV SCH ×2 (06:42→16:40)
[2024-10-10] MEDS ORDERED: fentaNYL 100 MCG/2 ML SDV IVPUSH PRN (07:18)
[2024-10-10] MEDS ORDERED: Sodium Chloride 0.9% 10 ML Syringe FLUSH PRN (07:18)
[2024-10-10] MEDS ORDERED: Ondansetron 4 MG/2 ML SDV IVPUSH PRN (07:18)
[2024-10-10] MEDS ORDERED: HYDROmorphone 0.5 MG/0.5 ML Syringe IVPUSH PRN (07:18)
[2024-10-10] MEDS: Sodium Chloride 0.9% 10 ML Syringe FLUSH SCH (08:23)
[2024-10-10] MEDS: Lactated Ringers 1,000 ML IV SCH (08:35)
[2024-10-10] MEDS ORDERED: Bupivacaine 0.5% 30 ML SDV ONE (09:32)
[2024-10-10 09:42] LABS: INR 1.44; PROTHROMBIN TIME 14.9 SECONDS (9.7-12.0)
[2024-10-10] MEDS ORDERED: Propofol 200 MG/20 ML SDV ONE (10:04)
[2024-10-10] MEDS ORDERED: Phenylephrine 1% 10 MG/ML SDV ONE (10:05)
[2024-10-10] MEDS ORDERED: Rocuronium 50 MG/5 ML Vial ONE (10:05)
[2024-10-10] MEDS ORDERED: Dexamethasone 4 MG/ML 5 ML MDV ONE (10:05)
[2024-10-10] MEDS ORDERED: Lidocaine 1% 5 ML VIAL ONE (10:05)
[2024-10-10] MEDS ORDERED: Sodium Chloride 0.9% 100 ML ONE (10:05)
[2024-10-10] MEDS ORDERED: fentaNYL 100 MCG/2 ML SDV ONE ×2 (10:05→12:41)
[2024-10-10] MEDS ORDERED: Esmolol 100 MG/10 ML SDV ONE (11:33)
[2024-10-10] MEDS ORDERED: Ketamine 200 MG/20 ML MDV ONE (12:23)
[2024-10-10] MEDS ORDERED: ceFAZolin 2 GM Vial ONE (12:28)
[2024-10-10] MEDS ORDERED: Lactated Ringers 1,000 ML ONE (12:58)
[2024-10-10] MEDS ORDERED: Sugammadex Sodium 200 MG/2 ML VIAL IV ONE (13:01)
[2024-10-10] MEDS ORDERED: Norepinephrine 4 MG/4 ML SDV ONE ×2 (13:30)
[2024-10-10] MEDS ORDERED: Lactated Ringers 1,000 ML IV ONE (14:15)
[2024-10-10] MEDS: Magnesium Sulf/Wat 2 GM/50 mL 2 GM in Premix Bag 1 BAG IV ONE (16:21)
[2024-10-10] MEDS: Magnesium Sulfat/D5W 1GM/100ML 1 GM in Premix Bag 1 BAG IV SCH (16:31)
[2024-10-10] MEDS: Ampicillin 2 GM in Sodium Chloride 0.9% 100 ML IV SCH ×2 (16:32→16:40)
[2024-10-10] MEDS: Tranexamic Acid 1,000 MG/10 ML Vial ONE (16:35)
[2024-10-10] MEDS: VANCOmycin 1 GM SDV ONE (16:36)
[2024-10-10] MEDS: Morphine 8 MG, EPINEPHrine 0.3 MG, Cefuroxime 750 MG, Ketorolac 30 MG, Sodium Chloride ... PRN (16:36)
[2024-10-10] MEDS: Acetaminophen/HYDROcodone 325-5 MG Tab PO PRN (18:06)
[2024-10-10] MEDS: Norepinephrine 4 MG/4 ML SDV ONE (19:52)
[2024-10-10] MEDS: Sodium Chloride 0.9% 250 ML ONE (19:52)
[2024-10-10] MEDS: Insulin Glargine,Human Rec. Analog 100 Units/ML 3 ML Pen SUBCUT ONE (21:52)
[2024-10-11] MEDS: Acetaminophen 325 MG Tab PO PRN (04:28)
[2024-10-11 04:46] LABS: HEMATOCRIT 31.7 % (42.0-52.0); HEMOGLOBIN 10.3 gm/dl (14.0-18.0); MEAN CORPUSCULAR HEMOGLOBIN 29.4 pg (28.0-32.0); MEAN CORPUSCULAR HGB CONC 32.5 g/dl (32.0-36.0); MEAN CORPUSCULAR VOLUME 90.6 fl (83.0-99.0); PLATELET COUNT,PLT 217 K/mm3 (150-400); WHITE BLOOD CELL COUNT,WBC 8.01 K/mm3 (3.9-11.3)
[2024-10-11 04:59] LABS: INR 1.33; PROTHROMBIN TIME 13.8 SECONDS (9.7-12.0)
[2024-10-11 05:19] LABS: A/G RATIO 0.8 (1-2); ALBUMIN 2.6 g/dl (3.4-5.0); ANION GAP 11.6 (5-15); BILIRUBIN TOTAL 0.5 mg/dL (0.2-1.0); BUN/CREATININE RATIO 21.8 (14-18); CALCIUM 8.9 mg/dL (8.5-10.1); CREATININE 1.7 mg/dL (0.7-1.3); EST CRCL DRUG DOSING (CG) 31.38 mL/min; MAGNESIUM 2.3 mg/dL (1.8-2.4); POTASSIUM,K 4.6 mEq/L (3.5-5.1)
[2024-10-11] MEDS: Clopidogrel 75 MG Tab PO SCH (08:20)
[2024-10-11] MEDS: Heparin Sodium 5,000 Units/ML Vial SUBCUT SCH (08:22)
[2024-10-11] MEDS: Insulin Lispro 100 Unit/ML 3 ML KwikPen SUBCUT SCH (08:23)
[2024-10-11] MEDS: Warfarin 5 MG Tab PO SCH (17:53)
[2024-10-12 04:38] LABS: BASOPHILS PERCENT AUTO 0.2 % (0.0-1.0); EOSINOPHILS ABSOLUTE AUTO 0.1 K/mm3 (0.0-0.4); EOSINOPHILS PERCENT AUTO 0.6 % (0.0-6.0); HEMATOCRIT 28.6 % (42.0-52.0); HEMOGLOBIN 9.5 gm/dl (14.0-18.0); IMMATURE GRAN ABSOLUTE AUTO 0.05 K/mm3 (0.00-0.05); IMMATURE GRAN PERCENT AUTO 0.5 % (0.0-0.4); LYMPHOCYTES ABSOLUTE AUTO 1.3 K/mm3 (1.0-4.8); LYMPHOCYTES PERCENT AUTO 14.3 % (24.0-44.0); MEAN CORPUSCULAR HEMOGLOBIN 29.3 pg (28.0-32.0); MEAN CORPUSCULAR HGB CONC 33.2 g/dl (32.0-36.0); MEAN CORPUSCULAR VOLUME 88.3 fl (83.0-99.0); MONOCYTES ABSOLUTE AUTO 0.7 K/mm3 (0.0-0.8); MONOCYTES PERCENT AUTO 7.8 % (0.0-8.0); NEUTROPHILS ABSOLUTE AUTO 7.1 K/mm3 (1.8-7.7); NEUTROPHILS PERCENT AUTO 76.6 % (41.0-71.0); PLATELET COUNT,PLT 264 K/mm3 (150-400); RED BLOOD CELL COUNT 3.24 M/mm3 (4.52-5.90); WHITE BLOOD CELL COUNT,WBC 9.25 K/mm3 (3.9-11.3)
[2024-10-12 04:58] LABS: INR 1.41; PROTHROMBIN TIME 14.6 SECONDS (9.7-12.0)
[2024-10-12 05:02] LABS: ANION GAP 13.8 (5-15); BUN/CREATININE RATIO 28.1 (14-18); CALCIUM 8.8 mg/dL (8.5-10.1); CREATININE 1.6 mg/dL (0.7-1.3); EST CRCL DRUG DOSING (CG) 33.34 mL/min; MAGNESIUM 2.1 mg/dL (1.8-2.4); POTASSIUM,K 3.8 mEq/L (3.5-5.1)
[2024-10-12] MEDS ORDERED: Warfarin 5 MG Tab PO SCH (18:00)
== END 2024-10-12 13:15 | DRG 521 ==
LOC: EDUNIT# → EDBD → JD.ED 11:37 → JD.ICU 18:26 → JD.MS 20:42
PROVIDERS: ADMIT Family Medicine; ATTEND Internal Medicine
PROC: 0SRS0JZ Replacement of Left Hip Joint, Femoral Surface with Synthetic Substitute, Open Approach (ICD-10-PCS; principal; 2024-10-07)
DX: S72.002A Fracture of unspecified part of neck of left femur, initial encounter for closed fracture (principal); G93.41 Metabolic encephalopathy; I11.0 Hypertensive heart disease with heart failure; I50.42 Chronic combined systolic (congestive) and diastolic (congestive) heart failure; E11.9 Type 2 diabetes mellitus without complications; Z95.1 Presence of aortocoronary bypass graft; Z79.84 Long term (current) use of oral hypoglycemic drugs; J96.01 Acute respiratory failure with hypoxia; I50.33 Acute on chronic diastolic (congestive) heart failure; N39.0 Urinary tract infection, site not specified; N17.9 Acute kidney failure, unspecified; I13.0 Hypertensive heart and chronic kidney disease with heart failure and stage 1 through stage 4 chronic kidney disease, or unspecified chronic kidney disease; Y92.129 Unspecified place in nursing home as the place of occurrence of the external cause; Z66 Do not resuscitate; H91.90 Unspecified hearing loss, unspecified ear; H54.7 Unspecified visual loss; N40.0 Benign prostatic hyperplasia without lower urinary tract symptoms; M19.90 Unspecified osteoarthritis, unspecified site; K40.90 Unilateral inguinal hernia, without obstruction or gangrene, not specified as recurrent; I35.0 Nonrheumatic aortic (valve) stenosis; I05.0 Rheumatic mitral stenosis; R26.2 Difficulty in walking, not elsewhere classified; N18.32 Chronic kidney disease, stage 3b; E11.40 Type 2 diabetes mellitus with diabetic neuropathy, unspecified; E83.42 Hypomagnesemia; E87.6 Hypokalemia; I48.0 Paroxysmal atrial fibrillation; G20.A1 Parkinson's disease without dyskinesia, without mention of fluctuations; W19.XXXA Unspecified fall, initial encounter; B95.2 Enterococcus as the cause of diseases classified elsewhere; I25.10 Atherosclerotic heart disease of native coronary artery without angina pectoris; Z98.49 Cataract extraction status, unspecified eye; Z95.2 Presence of prosthetic heart valve; Z96.659 Presence of unspecified artificial knee joint; Z96.619 Presence of unspecified artificial shoulder joint; Z79.899 Other long term (current) drug therapy; Z88.8 Allergy status to other drugs, medicaments and biological substances; Z79.01 Long term (current) use of anticoagulants; Z88.2 Allergy status to sulfonamides; Z98.890 Other specified postprocedural states; Z95.5 Presence of coronary angioplasty implant and graft; Z79.4 Long term (current) use of insulin
CPT/HCPCS: 0241U; 36415; 70450; 71045; 73501; 73502; 80048; 80053; 81001; 83735; 85025; 85027; 85610; 86140; 86850; 86900; 86901; 87086; 87088; 87186; 87641; 93005; 93306; 94760; 94761; 96374; 97110; 97116; 97161; 97530; 99285; 01220; 64999; 99100; A9270-GY; C1776; J0171; J0290; J0665; J0690; J0696; J0697; J1100; J1644; J1815; J1815-GY; J1885; J2003; J2270; J2272; J2371; J2704; J3010; J3475; J3480; J3490; J7120